=== PATIENT | female | born 1940 | race Caucasian/White ===

== ENCOUNTER → 2016-06-12 | Outpatient (CLI) | payer MEDICARE, OTHER ==
[~2016-06-12] MED LIST: ALBUAER3 IN; CELE200C PO; DOCU-94 PO; LEVO50TA7 PO; OMEP20CA5 PO; PROP60CA8 PO; RIV20T PO; SIMV-13 OR; TEMA30CA PO
[2016-06-12 14:10] LABS: Albumin 3.2 g/dL (3.4-5.0); BUN/Creatinine Ratio 43.6; Bilirubin, Direct 0.2 mg/dL (0-0.2); Bilirubin, Total 0.5 mg/dL (0.2-1.0); Calcium 8.8 mg/dL (8.5-10.1); Total Protein 6.4 g/dL (6.4-8.2)
[2016-06-12 18:21] LABS: Basophils # (auto) 0 uL; Basophils % (auto) 0.2 % (0.0-2.0); Eosinophils # (auto) 0.2 uL; Eosinophils % (auto) 1.8 % (0.0-7.0); Hematocrit 45.1 % (36.0-46.0); Hemoglobin 14.7 g/dL (12.2-16.2); Lymphocytes # (auto) 2.4 uL; Lymphocytes % (auto) 25.2 % (10.0-50.0); Mean Corpuscular Hemoglobin 29.7 pg (28.0-32.0); Mean Corpuscular Hgb Conc. 32.6 g/dL (32.0-36.0); Mean Corpuscular Volume 91.1 fL (80.0-100.0); Monocytes # (auto) 0.7 uL; Monocytes % (auto) 7.3 % (0.0-12.0); Neutrophils # (auto) 6.3 uL; Neutrophils % (auto) 65.5 % (37.0-80.0); Platelet Count (auto) 211 10^3/uL (140-450); Red Cell Distribution Width 14.8 % (11.6-16.0); White Blood Cell 9.7 10^3/uL (4.4-10.8)
== END | disposition home or self-care (01) ==
LOC: Rad HDHVI 08:17
PROVIDERS: ATTEND Internal Medicine Cardiovascular Disease
DX: I10 Essential (primary) hypertension (principal); E78.00 Pure hypercholesterolemia, unspecified; K74.1 Hepatic sclerosis; E11.9 Type 2 diabetes mellitus without complications; E03.9 Hypothyroidism, unspecified; D64.9 Anemia, unspecified; E55.9 Vitamin D deficiency, unspecified
CPT/HCPCS: 36415; 80048; 80061; 80076; 82306; 83036; 84443; 85025; 93971

== ENCOUNTER → 2016-07-11 | Outpatient (CLI) | payer MEDICARE, OTHER, MEDICAID | END | disposition home or self-care (01) | LOC: Rad HDHVI 10:59 | PROVIDERS: ATTEND Internal Medicine Cardiovascular Disease | DX: I10 Essential (primary) hypertension (principal); R78.5 Finding of other psychotropic drug in blood; R07.89 Other chest pain; R06.02 Shortness of breath | CPT/HCPCS: 93306 ==

== ENCOUNTER → 2016-09-17 | Outpatient (CLI) | payer MEDICARE, OTHER, MEDICAID ==
[~2016-09-17] MED LIST changes: -OMEP20CA5 PO; +OMEP20CA74 PO
[2016-09-17 13:46] LABS: Basophils # (auto) 0 uL; Basophils % (auto) 0.5 % (0.0-2.0); CONDITION Y; Eosinophils # (auto) 0.1 uL; Eosinophils % (auto) 1.5 % (0.0-7.0); Hemoglobin 14.8 g/dL (12.2-16.2); Lymphocytes # (auto) 3.1 uL; Lymphocytes % (auto) 44.3 % (10.0-50.0); Mean Corpuscular Hemoglobin 29.7 pg (28.0-32.0); Mean Corpuscular Hgb Conc. 32.9 g/dL (32.0-36.0); Mean Corpuscular Volume 90.3 fL (80.0-100.0); Mean Platelet Volume 9.8 fL (7.4-10.4); Monocytes # (auto) 0.7 uL; Monocytes % (auto) 9.7 % (0.0-12.0); Neutrophils # (auto) 3.1 uL; Platelet Count (auto) 232 10^3/uL (140-450)
[2016-09-17 14:05] LABS: Albumin 3.2 g/dL (3.4-5.0); BUN/Creatinine Ratio 49.1; Bilirubin, Total 0.3 mg/dL (0.2-1.0); Calcium 8.9 mg/dL (8.5-10.1); Potassium 4.3 mmol/L (3.5-5.1); Total Protein 6.5 g/dL (6.4-8.2)
== END | disposition home or self-care (01) ==
LOC: LAB 13:27
DX: I10 Essential (primary) hypertension (principal); M25.50 Pain in unspecified joint; M06.9 Rheumatoid arthritis, unspecified; D64.9 Anemia, unspecified; Z79.899 Other long term (current) drug therapy
CPT/HCPCS: 36415; 80053; 85025; 85652; 86141

== ENCOUNTER → 2016-12-18 | Outpatient (CLI) | payer MEDICARE ==
[2016-12-18 13:49] LABS: Basophils # (auto) 0 uL; Basophils % (auto) 0.6 % (0.0-2.0); Eosinophils # (auto) 0.2 uL; Eosinophils % (auto) 2.3 % (0.0-7.0); Hemoglobin 14.8 g/dL (12.2-16.2); Lymphocytes # (auto) 3.2 uL; Lymphocytes % (auto) 42.8 % (10.0-50.0); Mean Corpuscular Hemoglobin 29.5 pg (28.0-32.0); Mean Corpuscular Hgb Conc. 32.9 g/dL (32.0-36.0); Mean Corpuscular Volume 89.7 fL (80.0-100.0); Mean Platelet Volume 9.4 fL (6.9-10.8); Monocytes # (auto) 0.6 uL; Monocytes % (auto) 7.4 % (0.0-12.0); Neutrophils # (auto) 3.5 uL; Neutrophils % (auto) 46.9 % (37.0-80.0); Nucleated Red Blood Cells % 0.1 %; Platelet Count (auto) 198 10^3/uL (140-450); Red Cell Distribution Width 13.5 % (11.8-14.3); White Blood Cell 7.5 10^3/uL (4.4-10.8)
[2016-12-18 14:07] LABS: Albumin 3.3 g/dL (3.4-5.0); BUN/Creatinine Ratio 45.2; Bilirubin, Total 0.4 mg/dL (0.2-1.0); Calcium 8.8 mg/dL (8.5-10.1); Potassium 4.2 mmol/L (3.5-5.1); Total Protein 6.5 g/dL (6.4-8.2)
== END | disposition home or self-care (01) ==
LOC: LAB 13:29
DX: I10 Essential (primary) hypertension (principal); I70.0 Atherosclerosis of aorta; D64.9 Anemia, unspecified; M25.50 Pain in unspecified joint; M06.9 Rheumatoid arthritis, unspecified; Z79.899 Other long term (current) drug therapy
CPT/HCPCS: 36415; 80053; 85025; 85652; 86141

== ENCOUNTER → 2016-12-31 | Outpatient (CLI) | payer MEDICARE | END | disposition home or self-care (01) | LOC: Rad HDHVI 14:02 | PROVIDERS: ATTEND Internal Medicine Cardiovascular Disease | DX: I36.1 Nonrheumatic tricuspid (valve) insufficiency (principal); I82.409 Acute embolism and thrombosis of unspecified deep veins of unspecified lower extremity; E70.0 Classical phenylketonuria | CPT/HCPCS: 93306 ==

== ENCOUNTER → 2018-05-20 | Outpatient (CLI) | payer MEDICARE ==
[~2018-05-20] MED LIST changes: +FUROSEMIDE 40 MG/4 ML VIAL IV ONE; +FUROSEMIDE 40 MG/4 ML VIAL ONE; +POTASSIUM CHL 10 Meq TABLET PO ONE; +POTASSIUM CHL 20 Meq TABLET PO ONE; +PROP60CA34 PO; -PROP60CA8 PO
--- NOTE | 2018-05-20 14:34 | NUR ---
CHF PT ARRIVED AT THE [facility]F [facility]IN[facility] FROM THE DR OFFICE. ORDERS RECIVED AND NOTED. VITALS OBTAINED PT IN 0 DISTRESS.
--- NOTE | 2018-05-20 14:45 | NUR ---
IV insertion IV access obtained, via clean sterile technique by inserting 22 BUTTERFLY gauge catheter at after attempt(s). IV secured properly. No trauma to site. Patient tolerated procedure well.
[2018-05-20 14:53] VITALS: BP 114/52
--- NOTE | 2018-05-20 15:00 | NUR ---
Discharge Instructions See e-MAR for any mediations given with this visit. Patient education given on disease process. Patient verbalized understanding. Previous labs reviewed. Patient discharged in stable condition with after care instructions and follow up appointment. MEDICATIONS LASIX 40 MG IVP X 1 KDUR 20 MEQ X 1
--- NOTE | 2018-05-20 15:00 | NUR ---
IV removal IV DC'd with sterile technique, catheter fully intact. Pressure dressing applied to site. Patient tolerated procedure well. Discharged with aftercare instructions per MD. NOTE:
== END | disposition home or self-care (01) ==
LOC: CHF HDHVI 14:34
PROVIDERS: ATTEND Internal Medicine Cardiovascular Disease
DX: I11.0 Hypertensive heart disease with heart failure (principal); I50.9 Heart failure, unspecified; E03.9 Hypothyroidism, unspecified; E78.00 Pure hypercholesterolemia, unspecified; E11.9 Type 2 diabetes mellitus without complications; G89.29 Other chronic pain; Z86.718 Personal history of other venous thrombosis and embolism; Z79.899 Other long term (current) drug therapy
CPT/HCPCS: 96374; G0463; J1940

== ENCOUNTER → 2018-05-28 | Outpatient (CLI) | payer MEDICARE ==
[~2018-05-28] MED LIST changes: -FUROSEMIDE 40 MG/4 ML VIAL IV ONE; -FUROSEMIDE 40 MG/4 ML VIAL ONE; -POTASSIUM CHL 10 Meq TABLET PO ONE; -POTASSIUM CHL 20 Meq TABLET PO ONE
== END | disposition home or self-care (01) ==
LOC: Rad HDHVI 14:00
PROVIDERS: ATTEND Internal Medicine Cardiovascular Disease
DX: I51.7 Cardiomegaly (principal); I47.1 Supraventricular tachycardia; R09.1 Pleurisy
CPT/HCPCS: 93306

== ENCOUNTER → 2018-07-13 | Outpatient (CLI) | payer MEDICARE ==
[~2018-07-13] MED LIST changes: +ATOR40TA52 PO; +CHOL20007 PO; +FURO20TA PO; +OME20T PO; +POTA-167 PO; +WARF3TAB20 PO
[2018-07-13 09:15] VITALS: BP 116/56
[2018-07-13 09:45] VITALS: BP 119/65
--- NOTE | 2018-07-13 09:45 | NUR ---
PRE-OP FOR RIGHT AND LEFT HEART CATH FOR 07/16/18 Pre-Op Discharge Summary: See e-MAR for any medications given for this visit. Pre-op orders received and carried out per MD of EKG, LABS and chest xrays. Patient given a copy of EKG with instructions to go to [facility] out patient for further follow up care.
[2018-07-13 12:22] LABS: Basophils # (auto) 0 uL; Basophils % (auto) 0.5 % (0.0-2.0); Eosinophils # (auto) 0.2 uL; Eosinophils % (auto) 2.6 % (0.0-7.0); Hematocrit 46.9 % (36.0-46.0); Hemoglobin 15.3 g/dL (12.2-16.2); Lymphocytes # (auto) 2.3 uL; Lymphocytes % (auto) 38.6 % (10.0-50.0); Mean Corpuscular Hemoglobin 29.9 pg (28.0-32.0); Mean Corpuscular Hgb Conc. 32.7 g/dL (32.0-36.0); Mean Corpuscular Volume 91.6 fL (80.0-100.0); Monocytes # (auto) 0.5 uL; Monocytes % (auto) 9.1 % (0.0-12.0); Neutrophils # (auto) 2.9 uL; Neutrophils % (auto) 49.2 % (37.0-80.0); Nucleated Red Blood Cells % 0.5 %; Platelet Count (auto) 182 10^3/uL (140-450); Red Blood Cells 5.12 10^6/uL (4.0-5.20); Red Cell Distribution Width 13.2 % (11.8-14.3); White Blood Cell 5.8 10^3/uL (4.4-10.8)
[2018-07-13 12:28] LABS: INR 3.38 (0.9-1.15); Partial Thromboplastin Time 41.3 sec (23.64-32.05); Prothrombin Time 34.4 sec (9.06-12.60)
[2018-07-13 13:08] LABS: BUN/Creatinine Ratio 42.9; Calcium 8.9 mg/dL (8.5-10.1); Potassium 4.1 mmol/L (3.5-5.1)
== END | disposition home or self-care (01) ==
LOC: CHF HDHVI 09:05
PROVIDERS: ATTEND Internal Medicine Cardiovascular Disease
DX: Z01.812 Encounter for preprocedural laboratory examination (principal); D64.9 Anemia, unspecified; R79.1 Abnormal coagulation profile; I10 Essential (primary) hypertension
CPT/HCPCS: 36415; 80048; 85025; 85610; 85730; 93005; G0463

== ENCOUNTER 2018-07-16 07:28 | Day surgery (SDC) | payer MEDICARE ==
[~2018-07-16] VITALS: Ht 157.5 cm; Wt 68.0 kg
[~2018-07-16 07:28] MED LIST changes: -ALBUAER3 IN; -DOCU-94 PO; -RIV20T PO; -SIMV-13 OR; -TEMA30CA PO
[2018-07-16 08:24] LABS: INR 1.44 (0.9-1.15)
[2018-07-16] MEDS ORDERED: ANGIOMAX 250 MG VIAL IV ONE (08:46)
[2018-07-16] MEDS ORDERED: methylPREDNISolone SOD SUCC 125 MG/2 ML VL ONE (08:46)
[2018-07-16] MEDS ORDERED: fentaNYL CITRATE 100 MCG/2 ML VL ONE (08:46)
[2018-07-16] MEDS ORDERED: diphenhdrAMINE HCL 50 MG/1 ML VL ONE (08:46)
[2018-07-16] MEDS ORDERED: LIDOCAINE 2%HCL (LOCAL ANESTH.) INJ 20ML MDV ONE (08:47)
[2018-07-16] MEDS ORDERED: ONDANSETRON HCL 4 MG/2 ML VIAL ONE (08:47)
[2018-07-16] MEDS ORDERED: SODIUM CHL 0.9% 0 ML ONE (08:47)
[2018-07-16] MEDS ORDERED: MIDAZOLAM HCL 1MG/1ML-2 ML VIAL ONE (08:47)
[2018-07-16] MEDS ORDERED: IOHEXOL 350 MG/ML 100ML IJ ONE ×2 (08:47→08:57)
[2018-07-16] MEDS ORDERED: FAMOTIDINE (10MG/ML) 2ML VL IV ONE (08:49)
[2018-07-16] MEDS ORDERED: ACETAMINOPHEN 500 MG TAB PO PRN (10:45)
[2018-07-16] MEDS ORDERED: ONDANSETRON HCL 4 MG/2 ML VIAL IV PRN (10:45)
== END 2018-07-16 12:34 | disposition home or self-care (01) ==
LOC: CATH 07:28
PROVIDERS: ATTEND Internal Medicine Cardiovascular Disease
DX: I25.10 Atherosclerotic heart disease of native coronary artery without angina pectoris (principal); I49.8 Other specified cardiac arrhythmias; I27.20 Pulmonary hypertension, unspecified; I82.411 Acute embolism and thrombosis of right femoral vein; E66.8 Other obesity; Z79.01 Long term (current) use of anticoagulants; Z86.718 Personal history of other venous thrombosis and embolism; Z87.440 Personal history of urinary (tract) infections; Z86.711 Personal history of pulmonary embolism; Z90.710 Acquired absence of both cervix and uterus; Z82.49 Family history of ischemic heart disease and other diseases of the circulatory system; Z82.3 Family history of stroke; Z98.890 Other specified postprocedural states; Z79.899 Other long term (current) drug therapy; Z88.5 Allergy status to narcotic agent; Z88.8 Allergy status to other drugs, medicaments and biological substances; Z88.0 Allergy status to penicillin; Z88.1 Allergy status to other antibiotic agents; Z91.041 Radiographic dye allergy status
CPT/HCPCS: 36415; 85610; 93460; C1760; C1894; J1200; J1644; J2250; J2405; J2930; J3010; J3490; J7030; Q9967; 99152; 99153

== ENCOUNTER → 2019-09-23 | Outpatient (CLI) | payer MEDICARE, OTHER, MEDICAID ==
[~2019-09-23] MED LIST changes: +FURO1TAB33 PO; -FURO20TA PO
== END | disposition home or self-care (01) ==
LOC: Rad HDHVI 10:04
PROVIDERS: ATTEND Internal Medicine Cardiovascular Disease
DX: I26.99 Other pulmonary embolism without acute cor pulmonale (principal); E78.5 Hyperlipidemia, unspecified; R06.02 Shortness of breath
CPT/HCPCS: 93306

== ENCOUNTER 2021-04-22 18:25 | Emergency (ER) | payer MEDICARE, MEDICAID ==
[~2021-04-22] VITALS: Ht 157.5 cm; Wt 72.6 kg
[2021-04-22] MEDS ORDERED: diazePAM 5 MG TAB PO ONE ×2 (19:30→21:15)
[2021-04-22] MEDS ORDERED: SODIUM CHLORIDE 0.9% 1,000 ML IV ONE (19:30)
[2021-04-22] MEDS ORDERED: KETOROLAC TROMETH 30 MG/ML 1ML VIAL IV ONE (19:30)
[2021-04-22 20:17] LABS: Basophils # (auto) 0.2 10 ^3/uL (0-0.2); Basophils % (auto) 2.1 % (0.0-2.0); Eosinophils # (auto) 0.1 10 ^3/uL (0-0.8); Eosinophils % (auto) 1.2 % (0.0-7.0); Hematocrit 44.7 % (36.0-46.0); Hemoglobin 14.8 g/dL (12.2-16.2); Lymphocytes # (auto) 2.2 10 ^3/uL (0.4-5.4); Lymphocytes % (auto) 25.6 % (10.0-50.0); Mean Corpuscular Hemoglobin 29.7 pg (28.0-32.0); Mean Corpuscular Hgb Conc. 33.1 g/dL (32.0-36.0); Mean Corpuscular Volume 89.7 fL (80.0-100.0); Monocytes # (auto) 0.6 10 ^3/uL (0-1.3); Monocytes % (auto) 6.8 % (0.0-12.0); Neutrophils # (auto) 5.5 10 ^3/uL (1.6-8.6); Neutrophils % (auto) 64.3 % (37.0-80.0); Nucleated Red Blood Cells % 0.2 %; Red Blood Cells 4.99 10^6/uL (4.0-5.20); Red Cell Distribution Width 14.5 % (11.8-14.3); White Blood Cell 8.6 10^3/uL (4.4-10.8)
[2021-04-22 20:25] LABS: Urine Bacteria NONE SEEN /hpf (None Seen); Urine Blood Negative /uL (Negative); Urine Specific Gravity 1.017 (1.001-1.035); Urine WBC 1 /hpf (0 - 5)
[2021-04-22 20:34] LABS: Albumin 3.2 g/dL (3.4-5.0); BUN/Creatinine Ratio 40.3; Calcium 8.7 mg/dL (8.5-10.1); Potassium 4.1 mmol/L (3.5-5.1)
[2021-04-22 20:39] LABS: Bilirubin, Total 0.3 mg/dL (0.2-1.0); Total Protein 6.4 g/dL (6.4-8.2)
[2021-04-22] MEDS ORDERED: MORPHINE SULFATE INJECTION 2 MG/ML SYRG IV ONE (21:15)
[2021-04-22] MEDS ORDERED: diphenhdrAMINE HCL 50 MG/1 ML VL IV ONE (22:45)
[2021-04-22] MEDS ORDERED: ACETYLCYSTEINE ORAL for CIN 20%(200MG/ML) 4ML PO ONE (22:45)
[2021-04-22] MEDS ORDERED: IOHEXOL 350 MG/ML 100ML IJ ONE (23:29)
[2021-04-23] MEDS ORDERED: MORPHINE SULFATE INJECTION 2 MG/ML SYRG IV ONE (02:30)
[2021-04-23 04:24] VITALS: BP 125/66
[2021-04-23] MEDS ORDERED: DIAZ5TAB PO (05:34)
[2021-04-23] MEDS ORDERED: SENN8.6T26 PO (05:34)
[2021-04-23] MEDS ORDERED: HYDR-4902 PO (05:34)
== END 2021-04-23 05:43 | disposition home or self-care (01) ==
LOC: EDBD 18:25 → ER 18:28
DX: S39.012A Strain of muscle, fascia and tendon of lower back, initial encounter (principal); K44.9 Diaphragmatic hernia without obstruction or gangrene; I10 Essential (primary) hypertension; I48.91 Unspecified atrial fibrillation; J45.909 Unspecified asthma, uncomplicated; E03.9 Hypothyroidism, unspecified; Z90.89 Acquired absence of other organs; Z79.01 Long term (current) use of anticoagulants; Z79.899 Other long term (current) drug therapy; Z88.0 Allergy status to penicillin; Z88.1 Allergy status to other antibiotic agents; Z88.5 Allergy status to narcotic agent; Z88.8 Allergy status to other drugs, medicaments and biological substances; Z20.822 Contact with and (suspected) exposure to COVID-19; X58.XXXA Exposure to other specified factors, initial encounter; Y93.89 Activity, other specified; Y92.89 Other specified places as the place of occurrence of the external cause; Y99.8 Other external cause status
CPT/HCPCS: 36415; 71045; 71260; 74177; 80053; 81001; 84484; 85025; 87426; 93005; 96361; 96374; 96375; 96376; 99285; J1200; J1885; J2270; J7030; Q9967

== ENCOUNTER → 2022-02-11 | Outpatient (CLI) | payer MEDICARE ==
[~2022-02-11] MED LIST changes: +DIAZ5TAB PO; +HYDR-4902 PO; +SENN8.6T26 PO
== END | disposition home or self-care (01) ==
LOC: Rad HDHVI 15:10
PROVIDERS: ATTEND Internal Medicine Cardiovascular Disease
DX: I11.9 Hypertensive heart disease without heart failure (principal)
CPT/HCPCS: 93306

== ENCOUNTER → 2022-06-17 | Outpatient (CLI) | payer MEDICARE | END | disposition home or self-care (01) | LOC: Rad HDHVI 13:21 | PROVIDERS: ATTEND Internal Medicine Cardiovascular Disease | DX: I82.409 Acute embolism and thrombosis of unspecified deep veins of unspecified lower extremity (principal) | CPT/HCPCS: 93926 ==

== ENCOUNTER 2024-07-23 19:26 | Inpatient (IN) | payer MEDICARE, MEDICAID ==
[~2024-07-23] VITALS: Ht 157.5 cm; Wt 107.0 kg
[~2024-07-23 19:26] MED LIST changes: +DIAZ-681 PO; -DIAZ5TAB PO; -POTA-167 PO; +POTA-211 PO
--- NOTE | 2024-07-23 19:40 | ED.PDOC ---
GI ASSESSMENT HPI Comments HPI: 84-year-old femal BIBA with prior medical history of hiatal hernia, EMS report that the patient is having epigastric pain that when she tries to catch a full breath it hurt her. EMS report that the vitals are good it just wanted to get checked out. Denies chills, fever, V/D, CP. No other associated symptoms, modifiers, Denies recent injuries or sick contacts present at this time. Vitals Temperature: Respiratory rate: SpO2: Heart rate: Blood pressure: Past Medical History: Arthritis, hiatal hernia, high lipids, asthma, CHF on water pills , AFib, DVT on Coumadin, hernia, thyroid, hypertension Past Surgical History: Thyroidectomy, breaths surgery, hysterectomy, hemorrhoidectomy Social History: HPI: Poor Historian. REVIEW OF SYSTEMS: CONSTITUTIONAL: Denies acute: fever, diaphoresis, chills, HEAD: Denies acute: headache, photophobia Eyes: Denies acute: Double vision, vision loss, eye pain, eye discharge. EARS: Denies acute: tinnitus, hearing loss, ear discharge, ear pain, THROAT: Denies acute: sore throat, swelling, difficulty swallowing , pain with swallowing, change in voice. NECK: Denies acute: neck pain, neck swelling, stiff neck. HEART: Denies acute : chest pain, palpitations, LUNGS: Denies acute: SOB, wheezing, cough, hemoptysis ABDOMEN: Denies acute: Vomiting, diarrhea, melena , hematemesis, hematochezia SKIN: Denies acute: rash, redness, lesions, itchiness. EXTREMITIES: Denies acute: calf pain, numbness, tingling, weakness, denies pain in extremity. Denies acute: Low back pain. Neuro: Denies acute: focal neurological deficit, motor or sensory focal neurological deficit, tremors, seizure like activity, confusion, dizziness, change in mental status, loss of bowel or bladder function, cauda equina like symptoms. : Denies acute: dysuria, hematuria, flank pain, increase in urinary frequency. PSYCH: Denies acute: hallucination, suicidal ideation, homicidal ideation. FEMALE: Denies acute: abnormal vaginal bleeding, foul odor, unusual discharge. PHYSICAL EXAM: General: ---- [id number]-[id number]----acute distress, awake and alert. Head: normocephalic, atraumatic. Neck: supple, trachea is midline, no swelling. Throat: Normal phonation. Eyes:, no erythema, no purulent discharge, no proptosis, no icterus. Heart: regular rate, regular rhythm, no significant murmur appreciated. Lungs: no apparent respiratory distress, Able to speak in full sentences. No wheezing, no rhonchi, no crackles. No stridors Clear to auscultation bilaterally. Abdomen: Epigastric tender to palpation, non distended, soft, no guarding, no rebound, + bowel sounds. Neuro: Awake, Alert, oriented to name, self, situation, follows commands GCS=15. Speech is normal. Skin: no petechia, no purpura, no cyanosis, non-pale, not jaundice. Lower extremities: --3/4 b/l - Pitting edema no deformity, no focal swelling, no calf TTP. Makes eye contact. moves all four extremities. Face: no apparent facial droop. ED COURSE: Time Seen by MD: 19:30 Primary Care Provider: ELLI Reviewed Notes: Nurses Notes, Medications, Allergies Allergies: Coded Allergies: Levofloxacin (Verified Allergy, Mild, ITCHING TO SITE OF IV INSERTION WITH REDNESS, 10/10/13) Codeine (Verified Allergy, Unknown, 07/13/18) Hydromorphone (Unverified Allergy, Unknown, 07/13/18) Iodine (Verified Allergy, Unknown, 07/13/18) FROM IODINE CONTRAST Penicillins (Verified Allergy, Unknown, 07/13/18) Propoxyphene (Verified Allergy, Unknown, 09/05/13) Home Meds Active Scripts Senna (Senna Laxative) 8.6 Mg Tab, 8.6 MG PO DAILY, #5 TAB Prov:CARA DURAN MD 04/23/21 Hydrocodone-Acetaminophen (Hydrocodone Bitartrate/AC 5-325 mg) 1 Tab Tab, 1 TAB PO Q8HPRN PRN, #15 TAB Prov:CARA DURAN MD 04/23/21 Diazepam (Valium) 5 Mg Tab, 10 MG PO BID, #10 TAB Prov:CARA DURAN MD 04/23/21 Reported Medications Cholecalciferol (VITAMIN D3) 2,000 Unit Tab, 1 TAB PO DAILY, #30 TAB 5 Refills 07/13/18 Potassium Chloride (Klor-Con 10) 10 Meq Tab, 10 MEQ PO DAILY, TAB 07/13/18 Furosemide (Lasix) 20 Mg Tb, 1 TAB PO DAILY, #90 TAB 1 Refill 07/13/18 Warfarin Sodium (Coumadin) 3 Mg Tab, 1 TAB PO DAILY, #30 TAB 5 Refills 07/13/18 Atorvastatin Calcium (ATORVASTATIN CALCIUM) 40 Mg Tab, 1 TAB PO QPM, #90 TAB 3 Refills 07/13/18 Omeprazole (Omeprazole) 20 Mg Cap, 40 MG PO QAM, CAP 07/13/18 Propranolol Hcl (Inderal La) 60 Mg Cap, 40 MG PO BID, CAP 10/09/13 Celecoxib (Celebrex) 200 Mg Cap, 200 MG PO DAILY 11/28/12 Levothyroxine Sodium (Levothyroxine Sodium) 50 Mcg Tab, 50 MCG PO QAM 11/28/12 Omeprazole (PRILOSEC) 20 Mg Cap, 20 MG PO QPM 11/28/12 Information Source: Patient, Emergency Med Personnel Mode of Arrival: EMS Past Medical History PAST MEDICAL HISTORY: AFIB, Arthritis, Asthma, CHF, High Lipids, HTN, Thyroid Past Medical History (Other): Hiatal hernia, DVT on right leg Surgical History: Hysterectomy, Thyroidectomy Surgical History (Other): Breasts surgery, hemorrhoidectomy FUR POLISHER History: Denies all FUR POLISHER Hx Family History Family History: Reviewed,noncontributory to illness, Unknown Social History Smoker: Non-Smoker Alcohol: Denies ETOH Use Drugs: Denies Drug Use Lives In: Home Was a procedure done? Was a procedure done?: No GI differential Dx Differential Diagnosis: Other (DDX include Diverticulitis, colitis, gastroenteritis, acute abdomen, SBO, enteritis, constipation, volvulus, appendicitis, Gallbladder disease, choledocolithiasis, ascending cholangitis, pancreatitis, intraAbdominal mass/neoplasm, hepatitis, UTI, pylonephritis, kidney stone, aneurysm, dissection, Inflammatory bowel disease, gastroparesis, ischemic bowel, ) X-Ray, Labs, Meds, VS Vital Signs Date Time Temp Pulse Resp B/P (MAP) Pulse Ox O2 Delivery O2 Flow Rate FiO2 07/23/24 23:00 77 16 130/67 (88) 93 07/23/24 22:21 173/76 07/23/24 22:21 176/79 07/23/24 22:00 70 16 179/79 (112) 96 07/23/24 20:11 74 16 96 Room Air* 0 21 07/23/24 20:00 98.2 74 16 153/76 (101) 96 98.2 07/23/24 19:28 79 07/23/24 19:26 98.7 85 22 164/84 (110) 97 98.7 Lab Test 07/23/24 20:40 07/23/24 19:59 07/23/24 19:55 Range/Units Troponin I High Sensitivity < 3 L < 3 L </=34 ng/L POC Glucose 103 70-106 mg/dl White Blood Count 9.6 4.4-10.8 10^3/uL Red Blood Count 5.05 4.0-5.20 10^6/uL Hemoglobin 15.1 12.2-16.2 g/dL Hematocrit 46.4 H 36.0-46.0 % Mean Corpuscular Volume 91.9 80.0-100.0 fL Mean Corpuscular Hemoglobin 29.9 28.0-32.0 pg Mean Corpuscular Hemoglobin Concent 32.5 32.0-36.0 g/dL Red Cell Distribution Width 13.3 11.8-14.3 % Platelet Count 210 140-450 10^3/uL Mean Platelet Volume 8.4 6.9-10.8 fL Neutrophils (%) (Auto) 52.6 37.0-80.0 % Lymphocytes (%) (Auto) 36.7 10.0-50.0 % Monocytes (%) (Auto) 9.2 0.0-12.0 % Eosinophils (%) (Auto) 1.2 0.0-7.0 % Basophils (%) (Auto) 0.3 0.0-2.0 % Neutrophils # (Auto) 5.0 1.6-8.6 10 ^3/uL Lymphocytes # (Auto) 3.5 0.4-5.4 10 ^3/uL Monocytes # (Auto) 0.9 0-1.3 10 ^3/uL Eosinophils # (Auto) 0.1 0-0.8 10 ^3/uL Basophils # (Auto) 0 0-0.2 10 ^3/uL Nucleated Red Blood Cells 0.1 % Sodium Level 140 136-145 mmol/L Potassium Level 4.3 3.5-5.1 mmol/L Chloride Level 107 98-107 mmol/L Carbon Dioxide Level 23 20-31 mmol/L Anion Gap 10 5-15 Blood Urea Nitrogen 19 9-23 mg/dL Creatinine 0.59 0.550-1.02 mg/dL Glomerular Filtration Rate Calc 89 >90 mL/min BUN/Creatinine Ratio 32.2 H 10.0-20.0 Serum Glucose 97 74-106 mg/dL Lactic Acid Level 1.1 0.4-2.0 mmol/L Calcium Level 9.4 8.7-10.4 mg/dL Total Bilirubin 0.4 0.2-1.0 mg/dL Aspartate Amino Transferase (AST) 16 13-40 U/L Alanine Aminotransferase (ALT) 12 7-40 U/L Alkaline Phosphatase 93 46-116 U/L B-Type Natriuretic Peptide 35.92 0-100 pg/mL Total Protein 5.9 5.7-8.2 g/dL Albumin 4.2 3.2-4.8 g/dL Lipase 50 12-53 U/L Current Medications Medications (Trade) Dose Ordered Sig/Fernando Route Start Time Stop Time Status Last Admin Sucralfate (Carafate Tab) 1 gm ONCE ONCE PO 07/23/24 20:00 07/23/24 20:01 DC 07/23/24 20:26 Pantoprazole Sodium (Protonix Tablet) 40 mg ONCE ONCE PO 07/23/24 20:00 07/23/24 20:01 DC 07/23/24 20:26 Lidocaine HCl (Xylocaine 2% Viscous) 10 ml ONCE ONCE PO 07/23/24 20:00 07/23/24 20:01 DC 07/23/24 20:26 Furosemide (Lasix Injection) 40 mg ONCE ONCE IV 07/23/24 21:15 07/23/24 21:56 DC 07/23/24 22:21 Fentanyl Citrate 100 mcg ONCE ONCE IV 07/23/24 21:15 07/23/24 21:56 DC 07/23/24 22:[address] [address] Ph: [phone] DIAGNOSTIC IMAGING Diagnostic Imaging Report : [id number] Signed PATIENT: JOHN BALLARD ACCT: [id number] UNIT: [id number] : 1940 LOC: ER ROOM / BED: / AGE / SEX: 84 / F ADM STATUS: REG ER SERVICE 44 ORDERING PHYSICIAN: MIRLANDE GONZALEZ DO PROCEDURE(s): CXRP - CHEST PORTABLE REASON: epig pain ORDER NUMBER(s): [id number], ACCESSION NUMBER(s): [id number] INDICATION: epig pain TECHNIQUE: Frontal view of the chest. COMPARISON: CHEST PORTABLE on DOS: 04/22/21 FINDINGS: LUCENCY BENEATH RIGHT MIRIAN DIAPHRAGM. CT RECOMMENDED. FREE AIR NOT EXCLUDED . The heart and mediastinal contours are grossly unremarkable. There is no evidence of pleural disease. The lungs are clear. The bony structures of the chest are intact without fracture. IMPRESSION: 1. LUCENCY BENEATH RIGHT MIRIAN DIAPHRAGM. CT RECOMMENDED. FREE AIR NOT EXCLUDED ATED BY: JG AVITIA MD DICTATED DATE/TIME: 07/23/242043 SIGNED BY: JG AVITIA MD SIGNED DATE/TIME: 07/23/242043 CC: [place] [id number] Ph: [phone] DIAGNOSTIC IMAGING Diagnostic Imaging Report : [id number] Signed PATIENT: JOHN BALLARD ACCT: [id number] UNIT: [id number] : 1940 LOC: ER ROOM / BED: / AGE / SEX: 84 / F ADM STATUS: REG ER SERVICE 44 ORDERING PHYSICIAN: MIRLANDE GONZALEZ DO PROCEDURE(s): ABPL - CT AB PEL WO CON-NO ORAL OR IV REASON: epig pain n/ ORDER NUMBER(s): [id number], ACCESSION NUMBER(s): [id number] Exam: CT CT AB PEL WO CON-NO ORAL OR IV History: epig pain n/ Comparison Study: ECIDC on DOS: 02/11/22 TECHNIQUE: Multidetector CT of the abdomen was performed from lung bases to pubic symphysis. Imaging was performed without IV contrast. Axial, coronal and sagittal multiplanar reformats were obtained from the axial data set by the technologist. Radiation Dose Information: CT Dose: CTDI volume is 23.79 mGy. Dose-length product is 1356.94 mGy*cm FINDINGS: Evaluation of solid organs is limited due to lack of intravenous contrast use. Findings: Lung Bases: No acute or significant lung base finding. Normal heart size. No pleural or pericardial effusion. Liver: The liver is normal in size. No focal lesions. Gallbladder and Biliary Tree: Small Calcified gallstones. Spleen: Unremarkable Pancreas: The pancreas is grossly normal in appearance. Adrenal Glands: Unremarkable Kidneys: Kidneys are grossly normal without calculi or hydronephrosis. Bladder: Grossly unremarkable for degree of distention. Bowel: Very large hiatal hernia measuring 23 cm in transverse dimension and 13 cm cranial caudal dimension. It contains mesenteric fat stomach and bowel creating atelectasis in both the right and left lower lung eagle.. Small bowel and colon are normal in caliber and distribution. The appendix is not visualized; however, no secondary findings of acute appendicitis identified. Ascites: Absent Lymphadenopathy: No mesenteric, retroperitoneal or periportal lymphadenopathy. Abdominal Wall and Mesentery: Unremarkable. Vasculature: The visualized abdominal aorta is normal in size and caliber. Filt er in the inferior vena cava. Evaluation of abdominal and pelvic vessels is limited due to lack of intravenous contrast. Pelvic Organs: Unremarkable Musculoskeletal: No aggressive focal bony lesions, acute fractures or dislocation. 2-3 mm anterior spondylolisthesis L4-L5. Soft tissues: Unremarkable IMPRESSION: 1. Large hiatal hernia measuring 24 cm in transverse dimension and 13 cm in cranial caudal dimension. The hernia contains mesenteric fat stomach and bowel. It is compressing the lower lung eagle bilaterally 2. Small gallstones. 3. Filter noted in the inferior vena cava. This is a TrapEase filter and is inferior to the renal veins. 4. 2-3 mm anterior spondylolisthesis L4-5. Radiation optimization: All CT scans at this facility use at least one of these dose optimization techniques: automated exposure control mA and/or kV adjustment per patient size (includes targeted exams where dose is matched to clinical indication) or iterative reconstruction. ATED BY: DUY HAYWOOD Jr. DO DICTATED DATE/TIME: 07/23/242127 SIGNED BY: DUY HAYWOOD Jr., SIGNED DATE/TIME: 07/23/242127 CC: Time of 1ST Reevaluation: 20:00 Reevaluation 1ST: Unchanged Time of 2ND Reevaluation: 00:00 Reevaluation 2ND: Improved Patient Education/Counseling: Diagnosis, Treatment, Prognosis Family Education/Counseling: No Family Present Comments Patient presented with the above HPI.---Epigastric pain---workup was initiated. patient was found with the above mentioned diagnosis. the following medications were ordered: please refer to order lists of meds and tests obtained by myself Dr. Gonzalez. Patient ED course and VS have been stabilized. Patient has been reassessed in the ED and remained in a stable condition. Pertinent incidental findings were discussed with the patient and/or family. Patient/family voices understanding and is agreeable with plan. Patient has been observed in the ED adequate length of time to insure improvement/stability. Escalation of care considered: Consideration of escalation to observation or admission patient states she has struggled with this problem for a long time with severe hiatal hernia. She has not been able to see any specialist General surgery or Gastroenterology because she says where she resides in a facility and can not have a ride to go to see any specialists. as very for outpatient close follow up. Patient was ADMITTED to the medicine team for further evaluation and treatment of their presentation. Given p.o. trial with water and apple juice but that caused a lot of pain. All the reports of any imaging studies that were ordered by myself were reviewed by myself. Departure 1 Departure Time of Disposition: 21:57 Impression: Primary Impression: Hiatal hernia Additional Impression: Epigastric pain Disposition: ADMITTED INPATIENT Admit to: [facility] Condition: Guarded Discharged With: Self Critical Care Note Critical Care Time?: No Heart Score Heart Score: Heart Score Response (Comments) Value History Slightly Suspicious 0 EKG Normal 0 Age >65 2 Risk Factors 1 or 2 risk factors 1 Troponin Normal limit 0 Total 3 I personally scribed for MIRLANDE GONZALEZ DO ([email or web address]) on 07/23/24 at 19:40. Electronically submitted by Esau Houston ([email or web address]). I personally scribed for MIRLANDE GONZALEZ DO ([email or web address]) on 07/23/24 at 21:35. Electronically submitted by Esau Houston ([email or web address]). MIRLANDE GONZALEZ DO July 23, 2024 19:40
[2024-07-23 20:11] VITALS: PULSE 74; RESP 16; O2SAT 96
[2024-07-23 20:12] LABS: Basophils # (auto) 0 10 ^3/uL (0-0.2); Basophils % (auto) 0.3 % (0.0-2.0); Eosinophils # (auto) 0.1 10 ^3/uL (0-0.8); Eosinophils % (auto) 1.2 % (0.0-7.0); Hematocrit 46.4 % (36.0-46.0); Hemoglobin 15.1 g/dL (12.2-16.2); Lymphocytes # (auto) 3.5 10 ^3/uL (0.4-5.4); Lymphocytes % (auto) 36.7 % (10.0-50.0); Mean Corpuscular Hemoglobin 29.9 pg (28.0-32.0); Mean Corpuscular Hgb Conc. 32.5 g/dL (32.0-36.0); Mean Corpuscular Volume 91.9 fL (80.0-100.0); Monocytes # (auto) 0.9 10 ^3/uL (0-1.3); Monocytes % (auto) 9.2 % (0.0-12.0); Neutrophils % (auto) 52.6 % (37.0-80.0); Nucleated Red Blood Cells % 0.1 %; Platelet Count (auto) 210 10^3/uL (140-450); Red Blood Cells 5.05 10^6/uL (4.0-5.20); Red Cell Distribution Width 13.3 % (11.8-14.3); White Blood Cell 9.6 10^3/uL (4.4-10.8)
[2024-07-23 20:25] LABS: Alanine Aminotransferase 12 U/L (7-40); Alkaline Phosphatase 93 U/L (46-116); Anion Gap 10 (5-15); Aspartate Aminotransferase 16 U/L (13-40); BUN/Creatinine Ratio 32.2 (10.0-20.0); Blood Urea Nitrogen 19 mg/dL (9-23); Calcium 9.4 mg/dL (8.7-10.4); Carbon Dioxide 23 mmol/L (20-31); Chloride 107 mmol/L (98-107); Glucose 97 mg/dL (74-106); Lipase 50 U/L (12-53); Potassium 4.3 mmol/L (3.5-5.1); Sodium 140 mmol/L (136-145); Total Protein 5.9 g/dL (5.7-8.2)
[2024-07-23 20:26] LABS: Albumin 4.2 g/dL (3.2-4.8); Bilirubin, Total 0.4 mg/dL (0.2-1.0)
[2024-07-23] MEDS: LIDOCAINE VISCOUS 2% 15ML UD PO ONE (20:26)
[2024-07-23] MEDS: PANTOPRAZOLE 40 MG TAB PO ONE (20:26)
[2024-07-23] MEDS: SUCRALFATE 1 GM TAB PO ONE (20:26)
--- NOTE | 2024-07-23 20:42 | ECG ---
[facility] Test Date: 2024-07-23 Test Time: 19:28:22 Pat Name: JOHN BALLARD Department: ED Room: 0247 Gender: F Edi Programmer Analyst: ANDREW : 1940 Requested By: MILTON AGUILAR Order Number: [id number] Reading MD: Parag Freedman Measurements Intervals [place] Rate: 79 P: 34 NH: 54 QRS: -2 QRSD: 84 T: 31 QT: 348 QTc: 399 Interpretive Statements Sinus rhythm Short NH interval Left atrial enlargement Baseline wander in lead(s) V1,V4,V6 Electronically Signed On 07-25-2024 22:27:48 PDT by Parag Freedman Please click the below link to view image of tracing.
--- NOTE | 2024-07-23 20:46 | DVH ---
INDICATION: epig pain TECHNIQUE: Frontal view of the chest. COMPARISON: CHEST PORTABLE on DOS: 04/22/21 FINDINGS: LUCENCY BENEATH RIGHT MIRIAN DIAPHRAGM. CT RECOMMENDED. FREE AIR NOT EXCLUDED . The heart and mediasti nal contours are grossly unremarkable. There is no evidence of pleural disease. The lungs are clear. The bony structures of the chest are intact without fracture. IMPRESSION: 1. LUCENCY BENEATH RIGHT MIRIAN DIAPHRAGM. CT RECOMMENDED. FREE AIR NOT EXCLUDED
--- NOTE | 2024-07-23 21:30 | DVH ---
Exam: CT CT AB PEL WO CON-NO ORAL OR IV History: epig pain n/ Comparison Study: ECID on DOS: 02/11/22 TECHNIQUE: Multidetector CT of the abdomen was performed from lung bases to pubic symphysis. Imaging was performed without IV contrast. Axial, coronal and sagittal multiplanar reformats were obtained fr om the axial data set by the technologist. Radiation Dose Information: CT Dose: CTDI volume is 23.79 mGy. Dose-length product is 1356.94 mGy*cm FINDINGS: Evaluation of solid organs is limited due to lack of intravenous contrast use. Findings: Lung Bases: No acute or significant lung base finding. Normal heart size. No pleural or pericardial effusion. Liver: The liver is normal in size. No focal lesions. Gallbladder and Biliary Tree: Small Calcified gallstones. Spleen: Unremarkable Pancreas: The pancreas is grossly normal in appearance. Adrenal Glands: Unremarkable Kidneys: Kidneys are grossly normal without calculi or hydronephrosis. Bladder: Grossly unremarkable for degree of distention. Bowel: Very large hiatal hernia measuring 23 cm in transverse dimension and 13 cm cranial caudal dime nsion. It contains mesenteric fat stomach and bowel creating atelectasis in both the right and left l ower lung eagle.. Small bowel and colon are normal in caliber and distribution. The appendix is not visualized; however, no secondary findings of acute appendicitis identified. Ascites: Absent Lymphadenopathy: No mesenteric, retroperitoneal or periportal lymphadenopathy. Abdominal Wall and Mesentery: Unremarkable. Vasculature: The visualized abdominal aorta is normal in size and caliber. Filter in the inferior greta a cava. Evaluation of abdominal and pelvic vessels is limited due to lack of intravenous contrast. Pelvic Organs: Unremarkable Musculoskeletal: No aggressive focal bony lesions, acute fractures or dislocation. 2-3 mm anterior sp ondylolisthesis L4-L5. Soft tissues: Unremarkable IMPRESSION: 1. Large hiatal hernia measuring 24 cm in transverse dimension and 13 cm in cranial caudal dimension. The hernia contains mesenteric fat stomach and bowel. It is compressing the lower lung eagle bilat erally 2. Small gallstones. 3. Filter noted in the inferior vena cava. This is a TrapEase filter and is inferior to the renal ve ins. 4. 2-3 mm anterior spondylolisthesis L4-5. Radiation optimization: All CT scans at this facility use at least one of these dose optimization michelle hniques: automated exposure control mA and/or kV adjustment per patient size (includes targeted exam s where dose is matched to clinical indication) or iterative reconstruction.
[2024-07-23] MEDS: FUROSEMIDE 40 MG/4 ML VIAL IV ONE (22:21)
[2024-07-23] MEDS: fentaNYL CITRATE 100 MCG/2 ML VL IV ONE (22:21)
[2024-07-24] VITALS (9 sets, daily range): BP systolic 102–140; BP diastolic 65–75; PULSE 69–89; RESP 16–20; TEMP 96.5–98.7; O2SAT 90–100
--- NOTE | 2024-07-24 01:08 | DVHHP2 ---
History of Present Illness History of Present Illness Patient is 84 years old male with past medical history of atrial fibrillation on Coumadin, DVT in the right leg on IVC filter, hypertension, thyroid disease, hyperlipidemia, asthma, arthritis came with a complaint of abdominal pain. As per patient patient has been having intractable abdominal pain began yesterday, crampy, sharp, 9/10, sudden onset, aggravated with movement. Patient also endorsed nausea but no vomiting. Patient reported she has chronic shortness of breath for over ER and also chronic leg swelling. Patient also reported chronic cough,scanty mucus production especially in the morning. IVC filter was placed in 2010 as per patient. Initial lab workup was negative for troponin I and BNP and lipase. CT abdomen and pelvis revealed-1. Large hiatal hernia measuring 24 cm in transverse dimension and 13 cm in cranial caudal dimension. The hernia contains mesenteric fat stomach and bowel. It is compressing the lower lung eagle bilaterally, Small gallstones. Filter noted in the inferior vena cava. This is a TrapEase filter and is inferior to the renal veins. 2-3 mm anterior spondylolisthesis L4-5. Past Surgical History Thyroidectomy due to thyroid nodule, post biopsy, hemorrhoidectomy, hysterectomy Past Social History Lives alone, use wheelchair, denies smoking/alcoholism/drug abuse Review of Systems Review of Systems Allergy-codeine, hydromorphone, iodine, Levofloxacillin, penicillin, propoxyphene Patient was seen today at the bedside. Cardiovascular- deny acute chest painor palpitation Respiratory denies wheezing Gastrointestinal- denies any rectal bleeding, vomiting Musculoskeletal-denies acute joint swelling or tenderness or redness Neurological- denies acute dysarthria, dysphagia, change in vision Psychiatry- denies depression or SI or HI Skin- denies acute rash or purpura Allergies: Coded Allergies: Levofloxacin (Verified Allergy, Mild, ITCHING TO SITE OF IV INSERTION WITH REDNESS, 10/10/13) Codeine (Verified Allergy, Unknown, 07/13/18) Hydromorphone (Unverified Allergy, Unknown, 07/13/18) Iodine (Verified Allergy, Unknown, 07/13/18) FROM IODINE CONTRAST Penicillins (Verified Allergy, Unknown, 07/13/18) Propoxyphene (Verified Allergy, Unknown, 09/05/13) Medications Current Medications Medications Dose Ordered Sig/Fernando Route Start Time Stop Time Status Last Admin Dose Admin Furosemide 20 mg DAILY PO 07/24/24 10:00 Levothyroxine Sodium 50 mcg QAM PO 07/24/24 07:00 Sennosides 8.6 mg DAILY PO 07/24/24 10:00 Patient Own Medication 1 tab DAILY PO 07/24/24 10:00 UNV Atorvastatin Calcium 40 mg HS PO 07/24/24 22:00 Cholecalciferol 2,000 unit DAILY PO 07/24/24 10:00 Pantoprazole Sodium 40 mg QAM PO 07/24/24 07:00 Exam Vital Signs Vital Signs Date Time Temp Pulse Resp B/P (MAP) Pulse Ox O2 Delivery O2 Flow Rate FiO2 07/24/24 00:00 98.1 74 16 138/79 (98) 96 98.1 07/23/24 20:11 Room Air* 0 21 Exam General examination- awake, alert, oriented, obese HEENT- PEERLA, no acute nasal discharge Cardiovascular- S1-S2 audible, rate and rhythm regular, no murmur Respiratory- CTAB, no wheeze or rhonchi Gastrointestinal-epi gastric mild tenderness+, bowel sound+. Nondistended Musculoskeletal-no acute joint swelling or tenderness or redness Lower extremity- right lower extremity swelling+ likely due to chronic DVT Neurological- cranial nerves intact, no acute dysarthria or dysphagia Psychiatry- denies depression or SI or HI Skin- no acute rash or purpura Labs/Xrays Labs Test 07/24/24 00:43 07/23/24 20:40 07/23/24 19:59 07/23/24 19:55 Range/Units Troponin I High Sensitivity < 3 L </=34 ng/L POC Glucose 103 70-106 mg/dl White Blood Count 9.6 4.4-10.8 10^3/uL Red Blood Count 5.05 4.0-5.20 10^6/uL Hemoglobin 15.1 12.2-16.2 g/dL Hematocrit 46.4 H 36.0-46.0 % Mean Corpuscular Volume 91.9 80.0-100.0 fL Mean Corpuscular Hemoglobin 29.9 28.0-32.0 pg Mean Corpuscular Hemoglobin Concent 32.5 32.0-36.0 g/dL Red Cell Distribution Width 13.3 11.8-14.3 % Platelet Count 210 140-450 10^3/uL Mean Platelet Volume 8.4 6.9-10.8 fL Neutrophils (%) (Auto) 52.6 37.0-80.0 % Lymphocytes (%) (Auto) 36.7 10.0-50.0 % Monocytes (%) (Auto) 9.2 0.0-12.0 % Eosinophils (%) (Auto) 1.2 0.0-7.0 % Basophils (%) (Auto) 0.3 0.0-2.0 % Neutrophils # (Auto) 5.0 1.6-8.6 10 ^3/uL Lymphocytes # (Auto) 3.5 0.4-5.4 10 ^3/uL Monocytes # (Auto) 0.9 0-1.3 10 ^3/uL Eosinophils # (Auto) 0.1 0-0.8 10 ^3/uL Basophils # (Auto) 0 0-0.2 10 ^3/uL Nucleated Red Blood Cells 0.1 % Sodium Level 140 136-145 mmol/L Potassium Level 4.3 3.5-5.1 mmol/L Chloride Level 107 98-107 mmol/L Carbon Dioxide Level 23 20-31 mmol/L Anion Gap 10 5-15 Blood Urea Nitrogen 19 9-23 mg/dL Creatinine 0.59 0.550-1.02 mg/dL Glomerular Filtration Rate Calc 89 >90 mL/min BUN/Creatinine Ratio 32.2 H 10.0-20.0 Serum Glucose 97 74-106 mg/dL Lactic Acid Level 1.1 0.4-2.0 mmol/L Calcium Level 9.4 8.7-10.4 mg/dL Total Bilirubin 0.4 0.2-1.0 mg/dL Aspartate Amino Transferase (AST) 16 13-40 U/L Alanine Aminotransferase (ALT) 12 7-40 U/L Alkaline Phosphatase 93 46-116 U/L B-Type Natriuretic Peptide 35.92 0-100 pg/mL Total Protein 5.9 5.7-8.2 g/dL Albumin 4.2 3.2-4.8 g/dL Lipase 50 12-53 U/L Assessment/Plan Assessment/Plan Assessment and plan Intractable abdominal pain with nausea likely due to acute girma ritis/pancreatitis Hiatus hernia, ruled out obstructive hiatal hernia Right lower extremity swelling likely due to chronic DVT, patient on warfarin History of CHF Atrial fibrillation, rate control History of right lower extremity DVT, on warfarin Hypothyroidism, status post partial thyroidectomy due to thyroid nodule Hiatus hernia Arthritis Hyperlipidemia Asthma spondylolisthesis L4-5. Plan Ordered ultrasound of the gallbladder to rule out acute cholecystitis Resume home medications atorvastatin, pantoprazole, levothyroxine, warfarin, Lasix Ordered surgery consult for further evaluation and care of hiatus hernia, rule out obstructive hiatus hernia Ordered echo 2D Goals of care, Code status ; discussed with >15 minutes PUD prophylaxis: Omeprazole DVT prophylaxis: Patient on warfarin Plan discussed with Dr. Perez , nursing staff, Total time spent on patient evaluation, chart review, assessment and plan, discussion discussion >35 minutes Plan discussed with: Patient, Other (RN) My Orders Orders - LEAH ZIEGLER Procedure Category Date Status Time Admit ADMIT 07/23/24 Transmitted 23:57 Notify Of Changes TAWANA 07/23/24 In Process From Base 23:57 Furosemide Tablet PHA 07/24/24 In Process (Lasix Tablet) 10:00 Levothyroxine Tablet PHA 07/24/24 In Process (Synthroid Tablet) 07:00 Senna Pod Tablet PHA 07/24/24 In Process (Senokot Tablet) 10:00 (Nf) Warfarin Sodium PHA 07/24/24 Pending (Coumadin) 10:00 Basic Metabolic Panel LAB 07/24/24 Logged 04:00 Echo 2d Mode Cardiac US 07/24/24 Logged DOP 00:14 PTPTT LAB 07/24/24 In Process 00:25 Atorvastatin (Lipitor) PHA 07/24/24 In Process 22:00 Cholecalciferol PHA 07/24/24 In Process Tablet (Vitamin D3 10:00 Pantoprazole Tablet PHA 07/24/24 In Process (Protonix Tablet) 07:00 * Surgical Consult CONS 07/24/24 Transmitted Date of Service: July 23, 2024 Billing Provider: IRIS PEREZ MD Common Visit Codes: [id number] INP/OBS CARE (HIGH) Secondary Visit Codes: [id number] CARE PLAN 30 MINUTES LEAH ZIEGLER July 24, 2024 01:08
[2024-07-24 01:14] LABS: INR 1.78 (0.9-1.15); Partial Thromboplastin Time 30.1 SEC (24.5-34.5); Prothrombin Time 17.8 sec (9.3-11.8)
[2024-07-24] MEDS ORDERED: traMADol HCL 50 MG TAB PO ONE (02:00)
[2024-07-24] MEDS: PANTOPRAZOLE 40 MG TAB PO SCH (05:46)
[2024-07-24] MEDS: LEVOTHYROXINE SODIUM 50 MCG TAB PO SCH (05:46)
[2024-07-24] MEDS ORDERED: OMEPRAZOLE 40 MG PO SCH (07:00)
[2024-07-24 07:58] LABS: Anion Gap 9 (5-15); Carbon Dioxide 28 mmol/L (20-31); Chloride 106 mmol/L (98-107); Sodium 143 mmol/L (136-145)
[2024-07-24 07:59] LABS: Calcium 9.9 mg/dL (8.7-10.4)
[2024-07-24 08:00] LABS: Potassium 3.5 mmol/L (3.5-5.1)
[2024-07-24 08:04] LABS: BUN/Creatinine Ratio 26.7 (10.0-20.0); Blood Urea Nitrogen 16 mg/dL (9-23); Glucose 88 mg/dL (74-106)
[2024-07-24] MEDS ORDERED: PATIENTS OWN MEDICATION (Warfarin Sodium (Coumadin) 1 TAB) PO SCH ×2 (09:15→10:00)
[2024-07-24] MEDS ORDERED: PATIENTS OWN MEDICATION (Cholecalciferol (Vitamin D3) 1 TAB) PO SCH (10:00)
[2024-07-24] MEDS: PROPRANOLOL HCL 20 MG TAB PO SCH (10:45)
[2024-07-24] MEDS ORDERED: SUCRALFATE 1 GM/10 ML ORAL SUSP PO ONE (10:45)
[2024-07-24] MEDS: SUCRALFATE 1 GM/10 ML ORAL SUSP PO SCH (11:16)
[2024-07-24] MEDS: CHOLECALCIFEROL (VITD3) 1,000UNIT=25mCg TAB PO SCH (11:16)
[2024-07-24] MEDS: SENNA 8.6 MG TAB PO SCH (11:16)
[2024-07-24] MEDS: FUROSEMIDE 20 MG TAB PO SCH (11:17)
[2024-07-24] MEDS: ACETAMINOPHEN 325 MG TAB PO PRN (11:17)
[2024-07-24] MEDS: SUCRALFATE 1 GM/10 ML ORAL SUSP GT ONE (11:25)
--- NOTE | 2024-07-24 11:30 | DVHINCON2 ---
Date of service: July 24, 2024 History of Present Illness 84-year-old female with a chronic history of hiatal hernia, atrial fibrillation on Coumadin, DVT with IVC also on Coumadin, admitted secondary to epigastric abdominal pain associated with nausea. Patient denies any fevers or chills. Patient is able to tolerate full liquid diet at this time. Past Medical History History of hiatal hernia. Atrial fibrillation on Coumadin. History of DVT with IVC filter. Hypertension. Hyperlipidemia. Asthma. CHF. Past Surgical History Thyroidectomy. Hysterectomy. Tubal ligation. Family History: Family history: Arthritis Family history: Cardiovascular disease G8 FATHER, Onset:60 years & older Stroke G8 FATHER, Onset:60 years & older Family History Noncontributory Social History No alcohol, tobacco, IV drug use Allergies: Coded Allergies: Levofloxacin (Verified Allergy, Mild, ITCHING TO SITE OF IV INSERTION WITH REDNESS, 10/10/13) Codeine (Verified Allergy, Unknown, 07/13/18) Hydromorphone (Unverified Allergy, Unknown, 07/13/18) Iodine (Verified Allergy, Unknown, 07/13/18) FROM IODINE CONTRAST Penicillins (Verified Allergy, Unknown, 07/13/18) Propoxyphene (Verified Allergy, Unknown, 09/05/13) Home Meds Active Scripts Senna (Senna Laxative) 8.6 Mg Tab, 8.6 MG PO DAILY, #5 TAB Prov:CARA DURAN MD 04/23/21 Reported Medications Cholecalciferol (VITAMIN D3) 2,000 Unit Tab, 1 TAB PO DAILY, #30 TAB 5 Refills 07/13/18 Furosemide (Lasix) 20 Mg Tb, 1 TAB PO DAILY, #90 TAB 1 Refill 07/13/18 Warfarin Sodium (Coumadin) 3 Mg Tab, 1 TAB PO DAILY, #30 TAB 5 Refills 07/13/18 Atorvastatin Calcium (ATORVASTATIN CALCIUM) 40 Mg Tab, 1 TAB PO QPM, #90 TAB 3 Refills 07/13/18 Omeprazole (Omeprazole) 20 Mg Cap, 40 MG PO QAM, CAP 07/13/18 Propranolol Hcl (Inderal La) 60 Mg Cap, 40 MG PO BID, CAP 10/09/13 Levothyroxine Sodium (Levothyroxine Sodium) 50 Mcg Tab, 50 MCG PO QAM 11/28/12 Current Medications Current Medications Medications (Trade) Dose Ordered Sig/Fernando Route PRN Reason Start Time Stop Time Status Last Admin Furosemide (Lasix Tablet) 20 mg DAILY PO 07/24/24 10:00 07/24/24 11:17 Levothyroxine Sodium (Synthroid Tablet) 50 mcg QAM PO 07/24/24 07:00 07/24/24 05:46 Sennosides (Senokot Tablet) 8.6 mg DAILY PO 07/24/24 10:00 07/24/24 11:16 Patient Own Medication 1 tab QPM PO 07/24/24 18:00 07/24/24 00:26 DC Patient Own Medication 1 tab DAILY PO 07/24/24 10:00 07/24/24 00:26 DC Patient Own Medication 40 mg QAM PO 07/24/24 07:00 07/24/24 00:26 DC Patient Own Medication 1 tab DAILY PO 07/24/24 10:00 07/24/24 09:17 DC Atorvastatin Calcium (Lipitor) 40 mg HS PO 07/24/24 22:00 Cholecalciferol (Vitamin D3 Tablet) 2,000 unit DAILY PO 07/24/24 10:00 07/24/24 11:16 Pantoprazole Sodium (Protonix Tablet) 40 mg QAM PO 07/24/24 07:00 07/24/24 08:34 DC 07/24/24 05:46 Acetaminophen (Tylenol Tablet) 650 mg Q4HP PRN PO MODERATE PAIN (4-6 PAIN SCALE) 07/24/24 03:00 07/24/24 11:17 Pantoprazole Sodium (Protonix) 40 mg BID IV 07/24/24 22:00 Sucralfate (Carafate Susp) 1 gm TID@0600,1130,2200 PO 07/24/24 11:30 07/24/24 11:16 Patient Own Medication 1 tab DAILY PO 07/24/24 09:15 UNV Warfarin Sodium (Coumadin Per Rx Protocol) RX PROTOCOL PER PHARMACY PO 07/24/24 09:30 UNV Propranolol HCl (Inderal Tablet) 40 mg BID PO 07/24/24 10:45 07/24/24 10:45 Vital Signs Vital Signs Date Time Temp Pulse Resp B/P (MAP) Pulse Ox O2 Delivery O2 Flow Rate FiO2 07/24/24 11:17 126/67 07/24/24 10:45 84 5/31/25 08:52 96.7 16 95 96.7 07/24/24 08:00 Nasal Cannula* 2 28 Physical Exam GEN: Obese elderly female in no acute distress. Alert. HEENT: Normocephalic atraumatic. Moist mucous membranes. Anicteric sclerae. CV: RRR Respiratory: Coarse breath sounds ABD: Infraumbilical midline incisional scar. Slightly obese abdomen with very minimal epigastric tenderness to palpation without guarding or rebound. Nondistended. CT of the abdomen and pelvis: Large hiatal hernia measuring 24 cm x 13 cm containing mesenteric fat, stomach and bowel. Small gallstones. Inferior vena cava filter. Labs/Diagnostic Data Labs Test 07/24/24 06:23 07/24/24 00:43 07/23/24 20:40 07/23/24 19:59 Range/Units Sodium Level 143 136-145 mmol/L Potassium Level 3.5 3.5-5.1 mmol/L Chloride Level 106 98-107 mmol/L Carbon Dioxide Level 28 20-31 mmol/L Anion Gap 9 5-15 Blood Urea Nitrogen 16 9-23 mg/dL Creatinine 0.60 0.550-1.02 mg/dL Glomerular Filtration Rate Calc 88 >90 mL/min BUN/Creatinine Ratio 26.7 H 10.0-20.0 Serum Glucose 88 74-106 mg/dL Hemoglobin A1c 5.4 <5.7 % A1C Calcium Level 9.9 8.7-10.4 mg/dL Vitamin D 25-Hydroxy 58.3 30.0-100 ng/mL Prothrombin Time 17.8 H 9.3-11.8 sec Prothrombin Time INR 1.78 H 0.9-1.15 Activated Partial Thromboplast Time 30.1 24.5-34.5 SEC Troponin I High Sensitivity < 3 L </=34 ng/L POC Glucose 103 70-106 mg/dl Test 07/23/24 19:55 Range/Units White Blood Count 9.6 4.4-10.8 10^3/uL Red Blood Count 5.05 4.0-5.20 10^6/uL Hemoglobin 15.1 12.2-16.2 g/dL Hematocrit 46.4 H 36.0-46.0 % Mean Corpuscular Volume 91.9 80.0-100.0 fL Mean Corpuscular Hemoglobin 29.9 28.0-32.0 pg Mean Corpuscular Hemoglobin Concent 32.5 32.0-36.0 g/dL Red Cell Distribution Width 13.3 11.8-14.3 % Platelet Count 210 140-450 10^3/uL Mean Platelet Volume 8.4 6.9-10.8 fL Neutrophils (%) (Auto) 52.6 37.0-80.0 % Lymphocytes (%) (Auto) 36.7 10.0-50.0 % Monocytes (%) (Auto) 9.2 0.0-12.0 % Eosinophils (%) (Auto) 1.2 0.0-7.0 % Basophils (%) (Auto) 0.3 0.0-2.0 % Neutrophils # (Auto) 5.0 1.6-8.6 10 ^3/uL Lymphocytes # (Auto) 3.5 0.4-5.4 10 ^3/uL Monocytes # (Auto) 0.9 0-1.3 10 ^3/uL Eosinophils # (Auto) 0.1 0-0.8 10 ^3/uL Basophils # (Auto) 0 0-0.2 10 ^3/uL Nucleated Red Blood Cells 0.1 % Lactic Acid Level 1.1 0.4-2.0 mmol/L Total Bilirubin 0.4 0.2-1.0 mg/dL Aspartate Amino Transferase (AST) 16 13-40 U/L Alanine Aminotransferase (ALT) 12 7-40 U/L Alkaline Phosphatase 93 46-116 U/L B-Type Natriuretic Peptide 35.92 0-100 pg/mL Total Protein 5.9 5.7-8.2 g/dL Albumin 4.2 3.2-4.8 g/dL Lipase 50 12-53 U/L Assessment 1. Large hiatal hernia without signs of obstruction. 2. Atrial fibrillation on Coumadin 3. CHF 4. History of DVTs with IVC Plan/Recommendation 1. Currently patient does not show symptoms of obstruction or signs of strangulation of hernia contents. Due to all her comorbidities, recommend GI and cardiac workup prior to possible surgery. I do recommend an outpatient surgery possibly with robotic surgery at a facility that has mesh that may be required in order to repair this large hiatal hernia. Plan discussed with: Patient FAITH HEARN MD July 24, 2024 11:30
--- NOTE | 2024-07-24 11:46 | DVHPNRES ---
Progress Note Date Seen: July 24, 2024 Resident Creating Document: CARMEN JOSEPH RESIDENT Has the PT tested + for MRSA If YES, has PT been informed?: No Medical Necessity Reason Pt with a Central, PICC or Fol: No Subjective Review of Systems Ruby Mcdaniel is an 84-year-old female with a complex medical history including Afib & DVT Rt leg on Coumadin, with an IVC filter, HTN, thyroid disease, HLD, asthma, arthritis, and CHF, who presented with complaints of abdominal pain. The patient reported a history of a mild hiatal hernia diagnosed in 2010, which was noted to have enlarged significantly during a hospitalization three years ago, at which time surgical intervention was considered but ultimately deferred. The current episode of abdominal pain began yesterday, described as crampy, sharp, sudden in onset, and rated 9/10 in intensity. The pain is aggravated by movement. The patient also endorsed nausea without vomiting. She reported chronic shortness of breath for over a year and chronic bilateral leg swelling attributed to CHF, under the care of Dr. Panchal (electrical continuity tester). Additional symptoms include a chronic cough with scant mucus production and morning- predominant reflux symptoms. Initial laboratory workup was negative for troponin I, BNP, and lipase. A CT scan of the abdomen and pelvis revealed a large hiatal hernia measuring 24 cm transversely and 13 cm cranio-caudally, containing mesenteric fat, stomach, and bowel, with compression of the lower lung eagle bilaterally. Additional findings included small gallstones, a TrapEase IVC filter located inferior to the renal veins, and 23 mm anterior spondylolisthesis at L4L5. ROS: The patient was seen and examined at the bedside. She reported ongoing acid reflux, mild nausea, and increased secretions. She also noted palpitations, which she attributed to missing her blood pressure medication today. Objective vital signs Vital Sign Date Time Temp Pulse Resp B/P (MAP) Pulse Ox O2 Delivery O2 Flow Rate FiO2 07/24/24 11:17 126/67 07/24/24 10:45 84 07/24/24 08:52 96.7 16 95 96.7 07/24/24 08:00 Nasal Cannula* 2 28 Total Intake and Output 07/23/24 07/23/24 07/24/24 15:00 23:00 07:00 Intake Total 240 ml Output Total 3100 ml Balance -2860 ml medications Current Medications Medications Dose Ordered Sig/Fernando Route Start Time Stop Time Status Last Admin Dose Admin Furosemide 20 mg DAILY PO 07/24/24 10:00 07/24/24 11:17 20 MG Levothyroxine Sodium 50 mcg QAM PO 07/24/24 07:00 07/24/24 05:46 50 MCG Sennosides 8.6 mg DAILY PO 07/24/24 10:00 07/24/24 11:16 8.6 MG Atorvastatin Calcium 40 mg HS PO 07/24/24 22:00 Cholecalciferol 2,000 unit DAILY PO 07/24/24 10:00 07/24/24 11:16 2,000 UNIT Acetaminophen 650 mg Q4HP PRN PO 07/24/24 03:00 07/24/24 11:17 650 MG Pantoprazole Sodium 40 mg BID IV 07/24/24 22:00 Sucralfate 1 gm TID@0600,1130,2200 PO 07/24/24 11:30 07/24/24 11:16 1 GM Patient Own Medication 1 tab DAILY PO 07/24/24 09:15 UNV Warfarin Sodium RX PROTOCOL PER PHARMACY PO 07/24/24 09:30 UNV Propranolol HCl 40 mg BID PO 07/24/24 10:45 07/24/24 10:45 40 MG Examination Pt is lying on bed General Appearance: Alert, Oriented X3, Cooperative, Not in acute distress HEENT: Atraumatic, Mucous membranes moist/pink Respiratory: Clear to auscultation, Normal air movement, No added sounds Cardiovascular: Regular rate, Normal S1, Normal S2, No murmurs Abdominal: Active bowel sounds, Soft, no distention, epigastric tenderness Extremities: Trace edema, Normal pulses, No tenderness Skin: No Significant rash, except past surgical scars Neuro: Normal speech, paraplegic Psych/Mental Status: Mental status NL, Mood NL Nurse was there as double cut sawyer during examination laboratory and microbiology Laboratory Tests 07/24/24 06:23 07/23/24 19:55 Test 07/24/24 06:23 Range/Units Serum Glucose 88 74-106 mg/dL Labs and/or images reviewed: Labs reviewed by me, Image(s) reviewed by me Problem List/Assessment/Plan Problem List/Assessment/Plan # Epigastric pain # Large hiatal hernia # GERD & acute gastritis # Cholelithiasis - Protonix IV and Carafate p.o. q.i.d. - surgical consult for possible surgical evaluation - CT ABD/pelvis showed large hiatal hernia measuring 24 x 13 cm, containing mesenteric fat, stomach, and bowel, with compression of the lower lung eagle bilaterally. along with small gallstones # Un controlled HTN possible urgency # Hx of Afib with a secondary hypercoagulable state # Hx of DVT- s/p IVC filter - continuously monitoring blood pressure - continue propranolol 40 mg b.i.d. - on warfarin # Chronic systolic versus diastolic CHF - continue propranolol and Lasix - ordered echocardiogram - consulted Dr. Panchal # Anterior spondylolisthesis L4L5- CT abdomen/ pelvis. Conservative management for now. Outpatient follow up with spine surgeon. # Hypothyroidism, status post partial thyroidectomy due to thyroid nodule - continue levothyroxine # Arthritis - no active issues # Hyperlipidemia - on statin # Asthma - not in exacerbation # History of polio - paraplegic; no active issues Protonix Warfarin Goals of care discussed with the patient for 20 minutes: Full code status Case discussed with Dr. Saleh, patient and nurse Plan discussed with: Patient, Other (RN) My Orders My Orders Orders - CARMEN JOSEPH RESIDENT Procedure Category Date Status Time Pantoprazole PHA 07/24/24 In Process (Protonix) 22:00 Sucralfate Susp PHA 07/24/24 In Process (Carafate Susp) 11:30 Propranolol Hcl PHA 07/24/24 In Process Tablet (Inderal 10:45 *Cons[address] Dr[address] Panchal CONS 07/24/24 Transmitted [place]unasalam 11:26 Addendum Addendum Addendum I was physically present for the chan portions of the service provided to patient by THE RESIDENT. I have reviewed the documentation, discussed the case with resident and agree with the resident's documentation except as noted. Also the patient's clinical case was discussed with the patient's nurse. This medical document was created using an electronic medical record system with computerized dictation system. Although this document has been carefully reviewed, there might still be some phonetic and typographical errors. These areas are purely typographical due to imperfections of the software programs, and do not reflect any compromise in the patient's medical care. Late signature. Date of Service: July 24, 2024 Billing Provider: KEVON SALEH MD Common Visit Codes: [id number] INP/OBS CARE(HIGH) Secondary Visit Codes: [id number] CARE PLAN 30 MINUTES (20 minutes) CARMEN JOSEPH RESIDENT July 24, 2024 11:46 KEVON SALEH MD Jul 25, 2024 13:10
[2024-07-24] MEDS ORDERED: PATIENTS OWN MEDICATION (Atorvastatin Calcium 1 TAB) PO SCH (18:00)
[2024-07-24] MEDS: WARFARIN SODIUM 1 MG TAB PO ONE (18:20)
[2024-07-24] MEDS: ATORVASTATIN 20 MG TAB PO SCH (21:51)
[2024-07-24] MEDS: PANTOPRAZOLE 40 MG/10 ML VIAL INJ IV SCH (21:54)
[2024-07-25] VITALS (8 sets, daily range): BP systolic 106–133; BP diastolic 55–73; PULSE 69–97; RESP 14–18; TEMP 97.5–98.1; O2SAT 95–97
[2024-07-25 07:15] LABS: Basophils # (auto) 0 10 ^3/uL (0-0.2); Basophils % (auto) 0.3 % (0.0-2.0); Eosinophils # (auto) 0.2 10 ^3/uL (0-0.8); Eosinophils % (auto) 2.1 % (0.0-7.0); Hematocrit 47.5 % (36.0-46.0); Hemoglobin 15.5 g/dL (12.2-16.2); Lymphocytes % (auto) 38.3 % (10.0-50.0); Mean Corpuscular Hemoglobin 29.8 pg (28.0-32.0); Mean Corpuscular Hgb Conc. 32.7 g/dL (32.0-36.0); Mean Corpuscular Volume 91.1 fL (80.0-100.0); Monocytes # (auto) 0.7 10 ^3/uL (0-1.3); Monocytes % (auto) 9.3 % (0.0-12.0); Neutrophils # (auto) 3.9 10 ^3/uL (1.6-8.6); Nucleated Red Blood Cells % 0.1 %; Platelet Count (auto) 224 10^3/uL (140-450); Red Blood Cells 5.21 10^6/uL (4.0-5.20); Red Cell Distribution Width 13.2 % (11.8-14.3); White Blood Cell 7.9 10^3/uL (4.4-10.8)
[2024-07-25 07:23] LABS: Anion Gap 6 (5-15); Carbon Dioxide 29 mmol/L (20-31); Chloride 107 mmol/L (98-107); Potassium 3.7 mmol/L (3.5-5.1); Sodium 142 mmol/L (136-145)
[2024-07-25 07:24] LABS: Calcium 10.1 mg/dL (8.7-10.4)
[2024-07-25 07:29] LABS: BUN/Creatinine Ratio 24.1 (10.0-20.0); Blood Urea Nitrogen 14 mg/dL (9-23); Glucose 90 mg/dL (74-106)
[2024-07-25 07:42] LABS: INR 1.87 (0.9-1.15); Partial Thromboplastin Time 33.9 SEC (24.5-34.5); Prothrombin Time 18.6 sec (9.3-11.8)
--- NOTE | 2024-07-25 14:51 | DVHPN2 ---
Progress Note - Dictate Date Seen: Jul 25, 2024 Has the PT tested + for MRSA If YES, has PT been informed?: No Medical Necessity Reason Pt with a Central, PICC or Fol: No Subjective E: no major events o/n. feels better with less abd pain. aziza diet. vital signs Vital Sign Date Time Temp Pulse Resp B/P (MAP) Pulse Ox O2 Delivery O2 Flow Rate FiO2 07/25/24 13:00 98.0 70 16 133/67 (89) 97 98.0 07/25/24 08:00 Nasal Cannula* 2 28 Total Intake and Output 07/24/24 07/24/24 07/25/24 15:00 23:00 07:00 Intake Total 600 ml 400 ml Output Total 500 ml 400 ml Balance 100 ml 0 ml medications Current Medications Medications Dose Ordered Sig/Fernando Route Start Time Stop Time Status Last Admin Dose Admin Furosemide 20 mg DAILY PO 07/24/24 10:00 07/25/24 10:04 20 MG Levothyroxine Sodium 50 mcg QAM PO 07/24/24 07:00 07/25/24 06:27 50 MCG Sennosides 8.6 mg DAILY PO 07/24/24 10:00 07/25/24 10:03 8.6 MG Atorvastatin Calcium 40 mg HS PO 07/24/24 22:00 07/24/24 21:51 40 MG Cholecalciferol 2,000 unit DAILY PO 07/24/24 10:00 07/25/24 10:04 2,000 UNIT Acetaminophen 650 mg Q4HP PRN PO 07/24/24 03:00 07/25/24 06:31 650 MG Pantoprazole Sodium 40 mg BID IV 07/24/24 22:00 07/25/24 10:03 40 MG Sucralfate 1 gm TID@0600,1130,2200 PO 07/24/24 11:30 07/25/24 10:12 1 GM Patient Own Medication 1 tab DAILY PO 07/24/24 09:15 UNV Warfarin Sodium RX PROTOCOL PER PHARMACY PO 07/24/24 09:30 Propranolol HCl 40 mg BID PO 07/24/24 10:45 07/25/24 10:04 40 MG objective GEN: NAD ABD: less TTP. no G/R. laboratory and microbiology Laboratory Tests 07/25/24 06:26 Test 07/25/24 06:26 Range/Units Serum Glucose 90 74-106 mg/dL Assessment/Plan A: 1. Large hiatal hernia without signs of obstruction. 2. Atrial fibrillation on Coumadin 3. CHF 4. History of DVTs with IVC P: 1. elective outpatient surgery at [facility]. Dietary Evaluation Review Recommendations by RD: Dietary education by RD, Protein Supplementation Comments: 1) Initiate Pro-Stat @ 30 mL qd 2) Initiate multivitamin @ 1 tb qd 3) Advance to cardiac diet when medicaly feasible, pending [employer] approval 4) Refer to outpatient RD for weight management 5) Follow up with cardiology and gastroenterology 6) Continue to monitor I&O, labs, and skin integrity Expected Outcomes/Goals: 1) appetite and labs to improve 2) diet to advance 3) wound to improve 4) f/u in 3-5 days Plan discussed with: Patient FAITH HEARN MD Jul 25, 2024 14:51
[2024-07-25] MEDS: WARFARIN SODIUM 1 MG TAB PO ONE (18:21)
--- NOTE | 2024-07-25 18:44 | DVHPNRES ---
Progress Note Date Seen: Jul 25, 2024 Resident Creating Document: MIN LOWRY RESIDENT Has the PT tested + for MRSA If YES, has PT been informed?: No Medical Necessity Reason Pt with a Central, PICC or Fol: No Subjective Review of Systems Patient seen and examined at bedside Epigastric pain resolved Mild gastric reflux, no nausea or vomiting No any other new acute symptoms Objective vital signs Vital Sign Date Time Temp Pulse Resp B/P (MAP) Pulse Ox O2 Delivery O2 Flow Rate FiO2 07/25/24 17:00 97.5 69 14 106/63 (77) 95 97.5 07/25/24 08:00 Nasal Cannula* 2 28 Total Intake and Output 07/24/24 07/24/24 07/25/24 15:00 23:00 07:00 Intake Total 600 ml 400 ml Output Total 500 ml 400 ml Balance 100 ml 0 ml medications Current Medications Medications Dose Ordered Sig/Fernadno Route Start Time Stop Time Status Last Admin Dose Admin Furosemide 20 mg DAILY PO 07/24/24 10:00 07/25/24 10:04 20 MG Levothyroxine Sodium 50 mcg QAM PO 07/24/24 07:00 07/25/24 06:27 50 MCG Sennosides 8.6 mg DAILY PO 07/24/24 10:00 07/25/24 10:03 8.6 MG Atorvastatin Calcium 40 mg HS PO 07/24/24 22:00 07/24/24 21:51 40 MG Cholecalciferol 2,000 unit DAILY PO 07/24/24 10:00 07/25/24 10:04 2,000 UNIT Acetaminophen 650 mg Q4HP PRN PO 07/24/24 03:00 07/25/24 06:31 650 MG Pantoprazole Sodium 40 mg BID IV 07/24/24 22:00 07/25/24 10:03 40 MG Sucralfate 1 gm TID@0600,1130,2200 PO 07/24/24 11:30 07/25/24 10:12 1 GM Patient Own Medication 1 tab DAILY PO 07/24/24 09:15 UNV Warfarin Sodium RX PROTOCOL PER PHARMACY PO 07/24/24 09:30 Propranolol HCl 40 mg BID PO 07/24/24 10:45 07/25/24 10:04 40 MG Examination General Appearance: Cooperative. Well developed. Well nourished. NAD Head Exam: Normal inspection Neck Exam: Normal inspection. Non-tender. Normal alignment Pulmonary/Respiratory: Chest non-tender. Clear bilateral breath sounds Cardiovascular/Chest: Regular rate and rhythm. No murmurs. No JVD. Peripheral Pulses: 2+ Radial (R). 2+ Radial (L). 2+ Pedal (R). 2+ Pedal (L) Abdominal Exam: Normal bowel sounds. Soft. Nontender. No hepatosplenomegaly. No masses Ankle Exam: Negative ankle edema Lower extremities: Negative lower extremity edema Neuro/Mental Status: A&O x4. Coherent Thoughts/Psych: Normal thought pattern. Appropriate mood and affect. Good judgement and insight Appearance: In no acute distress Skin Exam: Normal inspection. Normal color. Warm. Dry laboratory and microbiology Laboratory Tests 07/25/24 06:26 Test 07/25/24 06:26 Range/Units Serum Glucose 90 74-106 mg/dL Labs and/or images reviewed: Labs reviewed by me, Image(s) reviewed by me Problem List/Assessment/Plan Problem List/Assessment/Plan # Epigastric pain # Large hiatal hernia # GERD & acute gastritis # Cholelithiasis - Protonix IV and Carafate p.o. q.i.d. - surgical consult : Recommend outpatient elective surgery - CT ABD/pelvis showed large hiatal hernia measuring 24 x 13 cm, containing mesenteric fat, stomach, and bowel, with compression of the lower lung eagle bilaterally. along with small gallstones - GI consultation as per surgery # Un controlled HTN possible urgency # Hx of Afib with a secondary hypercoagulable state # Hx of DVT- s/p IVC filter - continuously monitoring blood pressure - continue propranolol 40 mg b.i.d. 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 Panchal # Anterior spondylolisthesis L4L5 - Conservative management for now. Outpatient follow up with spine surgeon. # Hypothyroidism, status post partial thyroidectomy due to thyroid nodule - continue levothyroxine # Arthritis - no active issues # Hyperlipidemia - on statin # Asthma - not in exacerbation # History of polio - paraplegic; no active issues Protonix Warfarin Case discussed with Dr. Saleh, patient and nurse Plan discussed with: Patient, Other (RN) My Orders My Orders Orders - MIN LOWRY RESIDENT Procedure Category Date Status Time * Gi Dvh Preflight Mechanic CONS 07/25/24 Transmitted 12:19 Dietary Evaluation Review Recommendations by RD: Dietary education by RD, Protein Supplementation Comments: 1) Initiate Pro-Stat @ 30 mL qd 2) Initiate multivitamin @ 1 tb qd 3) Advance to cardiac diet when medicaly feasible, pending RETORT FURNACE OPERATOR approval 4) Refer to outpatient RD for weight management 5) Follow up with cardiology and gastroenterology 6) Continue to monitor I&O, labs, and skin integrity Expected Outcomes/Goals: 1) appetite and labs to improve 2) diet to advance 3) wound to improve 4) f/u in 3-5 days Addendum Addendum Addendum I was physically present for the chan portions of the service provided to patient by THE RESIDENT. I have reviewed the documentation, discussed the case with resident and agree with the resident's documentation except as noted. Also the patient's clinical case was discussed with the patient's nurse. This medical document was created using an electronic medical record system with computerized dictation system. Although this document has been carefully reviewed, there might still be some phonetic and typographical errors. These areas are purely typographical due to imperfections of the software programs, and do not reflect any compromise in the patient's medical care. Late signature. Date of Service: Jul 25, 2024 Billing Provider: KEVON SALEH MD Common Visit Codes: [id number] INP/OBS CARE(HIGH) MIN LOWRY RESIDENT Jul 25, 2024 18:44 KEVON SALEH MD Jul 26, 2024 05:20
[2024-07-25] MEDS ORDERED: MELATONIN 5 MG TAB PO PRN (22:00)
[2024-07-25] MEDS: LACTULOSE 20Gm/30ML SOLN PO PRN (22:15)
[2024-07-25] MEDS: TEMAZEPAM 15 MG CAP PO ONE (22:15)
[2024-07-26] VITALS (8 sets, daily range): BP systolic 120–143; BP diastolic 53–78; PULSE 60–86; RESP 16–17; TEMP 95.6–98.2; O2SAT 91–98
[2024-07-26 08:15] LABS: Basophils # (auto) 0 10 ^3/uL (0-0.2); Basophils % (auto) 0.5 % (0.0-2.0); Eosinophils # (auto) 0.2 10 ^3/uL (0-0.8); Eosinophils % (auto) 2.5 % (0.0-7.0); Hematocrit 44.9 % (36.0-46.0); Hemoglobin 14.9 g/dL (12.2-16.2); Lymphocytes # (auto) 2.5 10 ^3/uL (0.4-5.4); Lymphocytes % (auto) 33.7 % (10.0-50.0); Mean Corpuscular Hemoglobin 30.4 pg (28.0-32.0); Mean Corpuscular Hgb Conc. 33.2 g/dL (32.0-36.0); Mean Corpuscular Volume 91.7 fL (80.0-100.0); Monocytes # (auto) 0.8 10 ^3/uL (0-1.3); Monocytes % (auto) 11.2 % (0.0-12.0); Neutrophils # (auto) 3.8 10 ^3/uL (1.6-8.6); Neutrophils % (auto) 52.1 % (37.0-80.0); Platelet Count (auto) 211 10^3/uL (140-450); White Blood Cell 7.3 10^3/uL (4.4-10.8)
[2024-07-26 08:29] LABS: INR 2.34 (0.9-1.15); Partial Thromboplastin Time 37.6 SEC (24.5-34.5); Prothrombin Time 22.8 sec (9.3-11.8)
[2024-07-26 10:39] LABS: Folate (Folic Acid) 17.51 ng/mL (>5.38)
--- NOTE | 2024-07-26 13:21 | DVHPNRES ---
Progress Note Date Seen: Jul 26, 2024 Resident Creating Document: ELIA CORREA RESIDENT Has the PT tested + for MRSA If YES, has PT been informed?: No Medical Necessity Reason Pt with a Central, PICC or Fol: No Subjective Review of Systems Ruby Mcdaniel is an 84-year-old female with a complex medical history including Afib & DVT Rt leg on Coumadin, with an IVC filter, HTN, thyroid disease, HLD, asthma, arthritis, and CHF, who presented with complaints of abdominal pain. The patient reported a history of a mild hiatal hernia diagnosed in 2010, which was noted to have enlarged significantly during a hospitalization three years ago, at which time surgical intervention was considered but ultimately deferred. The current episode of abdominal pain began yesterday, described as crampy, sharp, sudden in onset, and rated 9/10 in intensity. The pain is aggravated by movement. The patient also endorsed nausea without vomiting. She reported chronic shortness of breath for over a year and chronic bilateral leg swelling attributed to CHF, under the care of Dr. Panchal (manager engine). Additional symptoms include a chronic cough with scant mucus production and morning- predominant reflux symptoms. Initial laboratory workup was negative for troponin I, BNP, and lipase. A CT scan of the abdomen and pelvis revealed a large hiatal hernia measuring 24 cm transversely and 13 cm cranio-caudally, containing mesenteric fat, stomach, and bowel, with compression of the lower lung eagle bilaterally. Additional findings included small gallstones, a TrapEase IVC filter located inferior to the renal veins, and 23 mm anterior spondylolisthesis at L4L5. Patient seen and examined at the bedside. Reports intermittent pain, epigastric. No acute distress. GI consultation pending. Objective vital signs Vital Sign Date Time Temp Pulse Resp B/P (MAP) Pulse Ox O2 Delivery O2 Flow Rate FiO2 07/26/24 10:01 69 131/59 07/26/24 09:00 97.5 16 94 97.5 07/25/24 20:00 Nasal Cannula* 2 28 Total Intake and Output 07/25/24 07/25/24 07/26/24 15:00 23:00 07:00 Intake Total 700 ml 750 ml Output Total 2000 ml Balance -1300 ml 750 ml medications Current Medications Medications Dose Ordered Sig/Fernando Route Start Time Stop Time Status Last Admin Dose Admin Furosemide 20 mg DAILY PO 07/24/24 10:00 07/26/24 10:00 20 MG Levothyroxine Sodium 50 mcg QAM PO 07/24/24 07:00 07/26/24 06:16 50 MCG Sennosides 8.6 mg DAILY PO 07/24/24 10:00 07/26/24 10:00 8.6 MG Atorvastatin Calcium 40 mg HS PO 07/24/24 22:00 07/25/24 22:09 40 MG Cholecalciferol 2,000 unit DAILY PO 07/24/24 10:00 07/26/24 10:01 2,000 UNIT Acetaminophen 650 mg Q4HP PRN PO 07/24/24 03:00 07/26/24 12:40 650 MG Pantoprazole Sodium 40 mg BID IV 07/24/24 22:00 07/26/24 10:01 40 MG Sucralfate 1 gm TID@0600,1130,2200 PO 07/24/24 11:30 07/26/24 12:40 1 GM Patient Own Medication 1 tab DAILY PO 07/24/24 09:15 UNV Warfarin Sodium RX PROTOCOL PER PHARMACY PO 07/24/24 09:30 Propranolol HCl 40 mg BID PO 07/24/24 10:45 07/26/24 10:01 40 MG Lactulose 30 ml DAILYPRN PRN PO 07/25/24 22:00 07/25/24 22:15 30 ML Melatonin 5 mg HS PRN PO 07/25/24 22:00 Cancel Examination Patient lying in bed, in no acute distress General: Obese, afebrile, palor, mucosae are moist Cardiovascular: Regular S1 and S2. No murmurs, gallops or rubs. No JVD elevation. No pedal edema Respiratory: Normal B/L air entry on room air. Clear lung sounds on auscultation Abdomen: Soft, nontender, nondistended, normoactive bowel sounds, no rebound tenderness, no organomegaly, no masses Genitourinary: Deferred MSK/skin: Mobilizes 4 limbs. Skin is dry and warm Neurological: No motor, no sensitive deficits, normal speech. Pupils are isocoric and reactive. Psych/Mental Status: A/Ox3 laboratory and microbiology Laboratory Tests 07/26/24 07:41 07/25/24 06:26 Test 07/25/24 06:26 Range/Units Serum Glucose 90 74-106 mg/dL Labs and/or images reviewed: Labs reviewed by me, Image(s) reviewed by me Problem List/Assessment/Plan Problem List/Assessment/Plan # Epigastric pain # Large hiatal hernia # GERD & acute gastritis # Cholelithiasis - Protonix IV and Carafate p.o. q.i.d. - surgeon recommended outpatient follow up - CT ABD/pelvis showed large hiatal hernia measuring 24 x 13 cm, containing mesenteric fat, stomach, and bowel, with compression of the lower lung eagle bilaterally. along with small gallstones - GI consultation pending # Un controlled HTN possible urgency # Hx of Afib with a secondary hypercoagulable state # Hx of DVT- s/p IVC filter - continuously monitoring blood pressure - continue propranolol 40 mg b.i.d. - on warfarin # Chronic systolic versus diastolic CHF - continue propranolol and Lasix - ordered echocardiogram - consulted Dr. Panchal # Anterior spondylolisthesis L4L5- CT abdomen/ pelvis. Conservative management for now. Outpatient follow up with spine surgeon. # Hypothyroidism, status post partial thyroidectomy due to thyroid nodule - continue levothyroxine # Arthritis - no active issues # Hyperlipidemia - on statin # Asthma - not in exacerbation # History of polio - paraplegic; no active issues Protonix Warfarin Goals of care discussed with the patient for 20 minutes: Full code status Case discussed with Dr. Victoria, patient and nurse, pending GI eval Plan discussed with: Patient Dietary Evaluation Review Recommendations by RD: Dietary education by RD, Protein Supplementation Comments: 1) Initiate Pro-Stat @ 30 mL qd 2) Initiate multivitamin @ 1 tb qd 3) Advance to cardiac diet when medicaly feasible, pending PHARMACOLOGIST approval 4) Refer to outpatient RD for weight management 5) Follow up with cardiology and gastroenterology 6) Continue to monitor I&O, labs, and skin integrity Expected Outcomes/Goals: 1) appetite and labs to improve 2) diet to advance 3) wound to improve 4) f/u in 3-5 days ELIA CORREA RESIDENT Jul 26, 2024 13:21
--- NOTE | 2024-07-26 14:20 | DVHPN2 ---
Progress Note - Dictate Date Seen: Jul 25, 2024 Has the PT tested + for MRSA If YES, has PT been informed?: No Medical Necessity Reason Pt with a Central, PICC or Fol: No Subjective PT WELL KNOWN TO ME HX OF CHRONIC DVT LE EDEMA LYMPHEDEMA AFIB HYPERCOAGULABLE STATE PE IVC FILTER HTN DIASTOLIC DYSFUNCTION ASTHMA RESTRICTED MOBILITY NOW WITH SS COMPLEX OF ABD PAIN CT OF ABD LARGE HIATAL HERNIA WITH COMPRESSION OF LUNG TISSUE CHOLELITHIASIS vital signs Vital Sign Date Time Temp Pulse Resp B/P (MAP) Pulse Ox O2 Delivery O2 Flow Rate FiO2 07/26/24 10:01 69 131/59 07/26/24 09:00 97.5 16 94 97.5 07/25/24 20:00 Nasal Cannula* 2 28 Total Intake and Output 07/25/24 07/25/24 07/26/24 15:00 23:00 07:00 Intake Total 700 ml 750 ml Output Total 2000 ml Balance -1300 ml 750 ml medications Current Medications Medications Dose Ordered Sig/Fernando Route Start Time Stop Time Status Last Admin Dose Admin Furosemide 20 mg DAILY PO 07/24/24 10:00 07/26/24 10:00 20 MG Levothyroxine Sodium 50 mcg QAM PO 07/24/24 07:00 07/26/24 06:16 50 MCG Sennosides 8.6 mg DAILY PO 07/24/24 10:00 07/26/24 10:00 8.6 MG Atorvastatin Calcium 40 mg HS PO 07/24/24 22:00 07/25/24 22:09 40 MG Cholecalciferol 2,000 unit DAILY PO 07/24/24 10:00 07/26/24 10:01 2,000 UNIT Acetaminophen 650 mg Q4HP PRN PO 07/24/24 03:00 07/26/24 12:40 650 MG Pantoprazole Sodium 40 mg BID IV 07/24/24 22:00 07/26/24 10:01 40 MG Sucralfate 1 gm TID@0600,1130,2200 PO 07/24/24 11:30 07/26/24 12:40 1 GM Patient Own Medication 1 tab DAILY PO 07/24/24 09:15 UNV Warfarin Sodium RX PROTOCOL PER PHARMACY PO 07/24/24 09:30 Propranolol HCl 40 mg BID PO 07/24/24 10:45 07/26/24 10:01 40 MG Lactulose 30 ml DAILYPRN PRN PO 07/25/24 22:00 07/25/24 22:15 30 ML Melatonin 5 mg HS PRN PO 07/25/24 22:00 Cancel laboratory and microbiology Laboratory Tests 07/26/24 07:41 07/25/24 06:26 Test 07/25/24 06:26 Range/Units Serum Glucose 90 74-106 mg/dL Problem List HX OF CHRONIC DVT LE EDEMA LYMPHEDEMA AFIB HYPERCOAGULABLE STATE PE IVC FILTER HTN DIASTOLIC DYSFUNCTION ASTHMA RESTRICTED MOBILITY NOW WITH SS COMPLEX OF ABD PAIN CT OF ABD LARGE HIATAL HERNIA WITH COMPRESSION OF LUNG TISSUE CHOLELITHIASIS Assessment/Plan CONT ANTI COAGULATION NEEDS CORRECTION OF HH ABX Dietary Evaluation Review Recommendations by RD: Dietary education by RD, Protein Supplementation Comments: 1) Initiate Pro-Stat @ 30 mL qd 2) Initiate multivitamin @ 1 tb qd 3) Advance to cardiac diet when medicaly feasible, pending DRIVER EDUCATION INSTRUCTOR approval 4) Refer to outpatient RD for weight management 5) Follow up with cardiology and gastroenterology 6) Continue to monitor I&O, labs, and skin integrity Expected Outcomes/Goals: 1) appetite and labs to improve 2) diet to advance 3) wound to improve 4) f/u in 3-5 days Plan discussed with: Patient AI CORBIN MD Jul 26, 2024 14:20
--- NOTE | 2024-07-26 17:40 | DVH ---
Indication: spinal stenosis Technique: CT axial images of the cervical spine are obtained without contrast. Coronal and sagittal reformats were obtained. Radiation Dose Information: CTDI volume is 24.98 mGy. Dose-length product is 667.61 mGy*cm Comparison: None FINDINGS: The cervical vertebral body heights are maintained. 4 mm anterolisthesis C3 upon C4.. 4 mm anterolis thesis of C4 upon C5 There is severe multilevel disc space narrowing. No prevertebral edema. Facet ar ticulations demonstrates severe facet hypertrophic changes. . The atlantooccipital, atlantoaxial annabel culations are intact. Levocurvature at the cervical/thoracic junction. Hyperdense opacification of the sphenoid and right maxillary sinus. Large left maxillary sinus mucosa l retention cyst/ polyp. Left thyroidectomy. IMPRESSION: 1. Severe cervical degenerative disc disease. 2. Severe facet hypertrophic changes. 3. Hyperdense opacification of the sphenoid, maxillary sinuses which can be seen with inspissated se cretions, fungal etiologies.
[2024-07-27] VITALS (10 sets, daily range): BP systolic 105–139; BP diastolic 51–82; PULSE 64–82; RESP 16–20; TEMP 97–98.1; O2SAT 92–99
[2024-07-27 06:25] LABS: Anion Gap 6 (5-15); Carbon Dioxide 31 mmol/L (20-31); Chloride 104 mmol/L (98-107); Potassium 3.8 mmol/L (3.5-5.1); Sodium 141 mmol/L (136-145)
[2024-07-27 06:26] LABS: Calcium 9.5 mg/dL (8.7-10.4)
[2024-07-27 06:30] LABS: Glucose 86 mg/dL (74-106)
[2024-07-27 06:31] LABS: BUN/Creatinine Ratio 21.7 (10.0-20.0); Blood Urea Nitrogen 13 mg/dL (9-23)
[2024-07-27] MEDS: ALBUTEROL SULF 2.5 MG/0.5ML(0.5%) NEB SOLN NEB ONE (11:17)
[2024-07-27 11:57] LABS: INR 1.93 (0.9-1.15); Partial Thromboplastin Time 35.4 SEC (24.5-34.5); Prothrombin Time 19.2 sec (9.3-11.8)
--- NOTE | 2024-07-27 16:16 | DVHDSRES ---
Discharge Summary Date of Admission Resident Creating Document: ELIA CORREA RESIDENT July 23, 2024 at 23:57 Date of Discharge: Jul 27, 2024 Labs/Diagnostic Data: Laboratory Results Test 07/27/24 11:16 07/27/24 05:59 07/26/24 07:41 07/24/24 06:23 Prothrombin Time 19.2 sec (9.3-11.8) Prothrombin Time INR 1.93 (0.9-1.15) Activated Partial Thromboplast Time 35.4 SEC (24.5-34.5) Sodium Level 141 mmol/L (136-145) Potassium Level 3.8 mmol/L (3.5-5.1) Chloride Level 104 mmol/L (98-107) Carbon Dioxide Level 31 mmol/L (20-31) Anion Gap 6 (5-15) Blood Urea Nitrogen 13 mg/dL (9-23) Creatinine 0.60 mg/dL (0.550-1.02) Glomerular Filtration Rate Calc 88 mL/min (>90) BUN/Creatinine Ratio 21.7 (10.0-20.0) Serum Glucose 86 mg/dL (74-106) Calcium Level 9.5 mg/dL (8.7-10.4) White Blood Count 7.3 10^3/uL (4.4-10.8) Red Blood Count 4.90 10^6/uL (4.0-5.20) Hemoglobin 14.9 g/dL (12.2-16.2) Hematocrit 44.9 % (36.0-46.0) Mean Corpuscular Volume 91.7 fL (80.0-100.0) Mean Corpuscular Hemoglobin 30.4 pg (28.0-32.0) Mean Corpuscular Hemoglobin Concent 33.2 g/dL (32.0-36.0) Red Cell Distribution Width 13.0 % (11.8-14.3) Platelet Count 211 10^3/uL (140-450) Mean Platelet Volume 8.6 fL (6.9-10.8) Neutrophils (%) (Auto) 52.1 % (37.0-80.0) Lymphocytes (%) (Auto) 33.7 % (10.0-50.0) Monocytes (%) (Auto) 11.2 % (0.0-12.0) Eosinophils (%) (Auto) 2.5 % (0.0-7.0) Basophils (%) (Auto) 0.5 % (0.0-2.0) Neutrophils # (Auto) 3.8 10 ^3/uL (1.6-8.6) Lymphocytes # (Auto) 2.5 10 ^3/uL (0.4-5.4) Monocytes # (Auto) 0.8 10 ^3/uL (0-1.3) Eosinophils # (Auto) 0.2 10 ^3/uL (0-0.8) Basophils # (Auto) 0 10 ^3/uL (0-0.2) Nucleated Red Blood Cells 0.0 % Hemoglobin A1c 5.4 % A1C (<5.7) Vitamin B12 Level 585 pg/mL (211-911) Vitamin D 25-Hydroxy 58.3 ng/mL (30.0-100) Folic Acid 17.51 ng/mL (>5.38) Test 07/23/24 20:40 07/23/24 19:59 07/23/24 19:55 Troponin I High Sensitivity < 3 ng/L (</=34) POC Glucose 103 mg/dl (70-106) Lactic Acid Level 1.1 mmol/L (0.4-2.0) Total Bilirubin 0.4 mg/dL (0.2-1.0) Aspartate Amino Transferase (AST) 16 U/L (13-40) Alanine Aminotransferase (ALT) 12 U/L (7-40) Alkaline Phosphatase 93 U/L (46-116) B-Type Natriuretic Peptide 35.92 pg/mL (0-100) Total Protein 5.9 g/dL (5.7-8.2) Albumin 4.2 g/dL (3.2-4.8) Lipase 50 U/L (12-53) Other Laboratory Tests 07/27/24 05:59 07/26/24 07:41 Brief Hx & Hospital Course: Ruby Mcdaniel is an 84-year-old female with a complex medical history including Afib & DVT Rt leg on Coumadin, with an IVC filter, HTN, thyroid disease, HLD, asthma, arthritis, and CHF, who presented with complaints of abdominal pain. The patient reported a history of a mild hiatal hernia diagnosed in 2010, which was noted to have enlarged significantly during a hospitalization three years ago, at which time surgical intervention was considered but ultimately deferred. The current episode of abdominal pain began yesterday, described as crampy, sharp, sudden in onset, and rated 9/10 in intensity. The pain is aggravated by movement. The patient also endorsed nausea without vomiting. She reported chronic shortness of breath for over a year and chronic bilateral leg swelling attributed to CHF, under the care of Dr. Panchal (automotive quality engineer). Additional symptoms include a chronic cough with scant mucus production and morning- predominant reflux symptoms. Initial laboratory workup was negative for troponin I, BNP, and lipase. A CT scan of the abdomen and pelvis revealed a large hiatal hernia measuring 24 cm transversely and 13 cm cranio-caudally, containing mesenteric fat, stomach, and bowel, with compression of the lower lung eagle bilaterally. Additional findings included small gallstones, a TrapEase IVC filter located inferior to the renal veins, and 23 mm anterior spondylolisthesis at L4L5. During hospital workup, CT abdomen showed large hiatal hernia measuring 24 x 13 cm, containing mesenteric fat, stomach, and bowel, with compression of the lower lung eagle bilaterally. along with small gallstones. Patient was started on Protonix and Carafate. Surgeon was consulted, recommended elective outpatient surgery at tertiary center. GI was consulted, recommended outpatient follow up. Patient refused surgical management for the hiatal hernia at this time. She would like to go with medical management given her age and comorbidities. Became resumed home medication warfarin and propranolol [address] cervical spine was ordered given neck pain, showed severe cervical degenerative disc disease and severe facet hypertrophic changes. 07/27/2024-patient is hemodynamically stable, vitally stable, therefore she has been discharged home with the recommendations to follow up with surgeon as outpatient at higher level of care, follow up with GI as outpatient. Patient agreed to discharge planning. Consults/Reason for consult Surgeon consulted for hiatal hernia GI consulted for hiatal hernia medical management Operations or Procedures ORDERING PHYSICIAN: MIRLANDE GONZALEZ DO PROCEDURE(s): ABPL - CT AB PEL WO CON-NO ORAL OR IV REASON: epig pain n/ ORDER NUMBER(s): [id number], ACCESSION NUMBER(s): [id number] Exam: CT CT AB PEL WO CON-NO ORAL OR IV History: epig pain n/ Comparison Study: [facility] on DOS: 02/11/22 TECHNIQUE: Multidetector CT of the abdomen was performed from lung bases to pubic symphysis. Imaging was performed without IV contrast. Axial, coronal and sagittal multiplanar reformats were obtained from the axial data set by the technologist. Radiation Dose Information: CT Dose: CTDI volume is 23.79 mGy. Dose-length product is 1356.94 mGy*cm FINDINGS: Evaluation of solid organs is limited due to lack of intravenous contrast use. Findings: Lung Bases: No acute or significant lung base finding. Normal heart size. No pleural or pericardial effusion. Liver: The liver is normal in size. No focal lesions. Gallbladder and Biliary Tree: Small Calcified gallstones. Spleen: Unremarkable Pancreas: The pancreas is grossly normal in appearance. Adrenal Glands: Unremarkable Kidneys: Kidneys are grossly normal without calculi or hydronephrosis. Bladder: Grossly unremarkable for degree of distention. Bowel: Very large hiatal hernia measuring 23 cm in transverse dimension and 13 cm cranial caudal dimension. It contains mesenteric fat stomach and bowel creating atelectasis in both the right and left lower lung eagle.. Small bowel and colon are normal in caliber and distribution. The appendix is not visualized; however, no secondary findings of acute appendicitis identified. Ascites: Absent Lymphadenopathy: No mesenteric, retroperitoneal or periportal lymphadenopathy. Abdominal Wall and Mesentery: Unremarkable. Vasculature: The visualized abdominal aorta is normal in size and caliber. Filter in the inferior vena cava. Evaluation of abdominal and pelvic vessels is limited due to lack of intravenous contrast. Pelvic Organs: Unremarkable Musculoskeletal: No aggressive focal bony lesions, acute fractures or dislocation. 2-3 mm anterior spondylolisthesis L4-L5. Soft tissues: Unremarkable IMPRESSION: 1. Large hiatal hernia measuring 24 cm in transverse dimension and 13 cm in cranial caudal dimension. The hernia contains mesenteric fat stomach and bowel. It is compressing the lower lung eagle bilaterally 2. Small gallstones. 3. Filter noted in the inferior vena cava. This is a TrapEase filter and is inferior to the renal veins. 4. 2-3 mm anterior spondylolisthesis L4-5. Radiation optimization: All CT scans at this facility use at least one of these dose optimization techniques: automated exposure control mA and/or kV adjustment per patient size (includes targeted exams where dose is matched to clinical indication) or iterative reconstruction. ATED BY: DUY HAYWOOD Jr., DO DICTATED DATE/TIME: 07/23/242127 SIGNED BY: DUY HAYWOOD Jr., SIGNED DATE/TIME: 07/23/242127 CC: Condition at Discharge: Stable Final Diagnosis/Problems List Epigastric pain secondary to Large hiatal hernia GERD & acute gastritis Cholelithiasis Uncontrolled hypertension History of atrial fibrillation with secondary hypercoagulable state Chronic congestive heart failure no exacerbation Cervical spine degenerative disc disease Anterior spondylolisthesis L4L5- Hypothyroidism Arthritis Dyslipidemia Asthma-controlled . history of polio Discharge Disposition: Home Discharge Instruct/Medications Diet: See Comment Diet comment: Soft diet, avoid spicy food Activity: Light activity Follow Up/Referral: Follow up with GI as outpatient Follow up with PCP within 7 days as outpatient Follow up with surgery at higher level of care as outpatient Medications: Per EMR Discharge Statement: "Patient was advised to return to the ER or call 911 if any headaches, dizziness, shortness of breath, chest pain, abdominal pain, bleeding, fevers, or worsening of medical condition. Patient was counseled about treatment plan, medications, possible side effects, patientverbalized understanding. All questions were answered to the best of my ability. This discharge took greater then 30 minutes in planning, reviewing documentation, counseling the patient, and discussing with other team members." ASSESSMENT ASSESSMENT Assessment # Epigastric pain secondary to Large hiatal hernia # GERD & acute gastritis # Cholelithiasis Date of Service: Jul 27, 2024 Billing Provider: KATHERINE ROBERT MD Common Visit Codes: 28701-KDA/OBS DISCH DAY >30min ELIA CORREA RESIDENT Jul 27, 2024 16:16 KATHERINE ROBERT MD Jul 28, 2024 08:58
[2024-07-27] MEDS ORDERED: SUCR1TAB PO (16:18)
[2024-07-27] MEDS ORDERED: PANT40T PO (16:18)
--- NOTE | 2024-07-27 16:53 | DVHPNRES ---
Progress Note Date Seen: Jul 27, 2024 Resident Creating Document: ELIA CORREA RESIDENT Has the PT tested + for MRSA If YES, has PT been informed?: No Medical Necessity Reason Pt with a Central, PICC or Fol: No Subjective Review of Systems Ruby Mcdaniel is an 84-year-old female with a complex medical history including Afib & DVT Rt leg on Coumadin, with an IVC filter, HTN, thyroid disease, HLD, asthma, arthritis, and CHF, who presented with complaints of abdominal pain. The patient reported a history of a mild hiatal hernia diagnosed in 2010, which was noted to have enlarged significantly during a hospitalization three years ago, at which time surgical intervention was considered but ultimately deferred. The current episode of abdominal pain began yesterday, described as crampy, sharp, sudden in onset, and rated 9/10 in intensity. The pain is aggravated by movement. The patient also endorsed nausea without vomiting. She reported chronic shortness of breath for over a year and chronic bilateral leg swelling attributed to CHF, under the care of Dr. Panchal (arboriculture instructor). Additional symptoms include a chronic cough with scant mucus production and morning- predominant reflux symptoms. Initial laboratory workup was negative for troponin I, BNP, and lipase. A CT scan of the abdomen and pelvis revealed a large hiatal hernia measuring 24 cm transversely and 13 cm cranio-caudally, containing mesenteric fat, stomach, and bowel, with compression of the lower lung eagle bilaterally. Additional findings included small gallstones, a TrapEase IVC filter located inferior to the renal veins, and 23 mm anterior spondylolisthesis at L4L5. 07/26-Patient seen and examined at the bedside. Reports intermittent pain, epigastric. No acute distress. GI consultation pending. 07/27-patient seen and examined at the bedside. Reports feeling better. GI consultation completed, patient scheduled for EGD tomorrow. NPO after midnight. Objective vital signs Vital Sign Date Time Temp Pulse Resp B/P (MAP) Pulse Ox O2 Delivery O2 Flow Rate FiO2 07/27/24 12:44 98.1 67 20 126/69 (88) 96 98.1 07/27/24 11:17 Room Air* 0 21 Total Intake and Output 07/26/24 07/26/24 07/27/24 15:00 23:00 07:00 Intake Total 1000 ml 300 ml Balance 1000 ml 300 ml medications Current Medications Medications Dose Ordered Sig/Fernando Route Start Time Stop Time Status Last Admin Dose Admin Furosemide 20 mg DAILY PO 07/24/24 10:00 07/27/24 09:55 20 MG Levothyroxine Sodium 50 mcg QAM PO 07/24/24 07:00 07/27/24 06:26 50 MCG Sennosides 8.6 mg DAILY PO 07/24/24 10:00 07/26/24 10:00 8.6 MG Atorvastatin Calcium 40 mg HS PO 07/24/24 22:00 07/26/24 22:02 40 MG Cholecalciferol 2,000 unit DAILY PO 07/24/24 10:00 07/27/24 09:54 2,000 UNIT Acetaminophen 650 mg Q4HP PRN PO 07/24/24 03:00 07/27/24 06:17 650 MG Pantoprazole Sodium 40 mg BID IV 07/24/24 22:00 07/26/24 22:03 40 MG Sucralfate 1 gm TID@0600,1130,2200 PO 07/24/24 11:30 07/27/24 06:13 1 GM Patient Own Medication 1 tab DAILY PO 07/24/24 09:15 UNV Warfarin Sodium RX PROTOCOL PER PHARMACY PO 07/24/24 09:30 Propranolol HCl 40 mg BID PO 07/24/24 10:45 07/27/24 09:54 40 MG Lactulose 30 ml DAILYPRN PRN PO 07/25/24 22:00 07/26/24 22:03 30 ML Melatonin 5 mg HS PRN PO 07/25/24 22:00 Cancel Examination Patient lying in bed, in no acute distress General: Obese, afebrile, palor, mucosae are moist Cardiovascular: Regular S1 and S2. No murmurs, gallops or rubs. No JVD elevation. No pedal edema Respiratory: Normal B/L air entry on room air. Clear lung sounds on auscultation Abdomen: Soft, nontender, nondistended, normoactive bowel sounds, no rebound tenderness, no organomegaly, no masses Genitourinary: Deferred MSK/skin: Mobilizes 4 limbs. Skin is dry and warm Neurological: No motor, no sensitive deficits, normal speech. Pupils are isocoric and reactive. Psych/Mental Status: A/Ox3 laboratory and microbiology Laboratory Tests 07/27/24 05:59 07/26/24 07:41 Test 07/27/24 05:59 Range/Units Serum Glucose 86 74-106 mg/dL Labs and/or images reviewed: Labs reviewed by me, Image(s) reviewed by me Problem List/Assessment/Plan Problem List/Assessment/Plan # Epigastric pain # Large hiatal hernia # GERD & acute gastritis # Cholelithiasis - Protonix IV and Carafate p.o. q.i.d. - surgeon recommended outpatient follow up - CT ABD/pelvis showed large hiatal hernia measuring 24 x 13 cm, containing mesenteric fat, stomach, and bowel, with compression of the lower lung eagle bilaterally. along with small gallstones - GI consultation -recommended upper EGD, scheduled for 07/28. NPO after midnight # Un controlled HTN possible urgency # Hx of Afib with a secondary hypercoagulable state # Hx of DVT- s/p IVC filter - continuously monitoring blood pressure - continue propranolol 40 mg b.i.d. - on warfarin # Chronic systolic versus diastolic CHF - continue propranolol and Lasix - ordered echocardiogram - consulted Dr. Panchal # Anterior spondylolisthesis L4L5- CT abdomen/ pelvis. Conservative management for now. Outpatient follow up with spine surgeon. # Hypothyroidism, status post partial thyroidectomy due to thyroid nodule - continue levothyroxine # Arthritis - no active issues # Hyperlipidemia - on statin # Asthma - not in exacerbation # History of polio - paraplegic; no active issues Protonix Warfarin Goals of care discussed with the patient for 20 minutes: Full code status Case discussed with Dr. Victoria, patient and nurse, pending upper EGD. NPO after midnight Plan discussed with: Patient My Orders My Orders Orders - ELIA CORREA Procedure Category Date Status Time * Glass Inspector CONS 07/27/24 Transmitted Consult Dietary Evaluation Review Recommendations by RD: Dietary education by RD, Protein Supplementation Comments: 1) Initiate Pro-Stat @ 30 mL qd 2) Initiate multivitamin @ 1 tb qd 3) Advance to cardiac diet when medicaly feasible, pending AUTOMOTIVE SERVICE ADVISOR approval 4) Refer to outpatient RD for weight management 5) Follow up with cardiology and gastroenterology 6) Continue to monitor I&O, labs, and skin integrity Expected Outcomes/Goals: 1) appetite and labs to improve 2) diet to advance 3) wound to improve 4) f/u in 3-5 days ELIA CORREA Jul 27, 2024 16:53
[2024-07-27] MEDS ORDERED: WARFARIN SODIUM 1 MG TAB PO ONE (17:00)
--- NOTE | 2024-07-27 20:19 | DVHINCON2 ---
Date of service: Jul 27, 2024 Referring Physician Elia Savage Reason for Consultation Large hiatal hernia History of Present Illness Patient is 84 years old male with past medical history of atrial fibrillation on Coumadin, DVT in the right leg on IVC filter, hypertension, thyroid disease, hyperlipidemia, asthma, arthritis came with a complaint of abdominal pain. As per patient patient has been having intractable abdominal pain began yesterday, crampy, sharp, 9/10, sudden onset, aggravated with movement. Patient also endorsed nausea but no vomiting. Patient reported she has chronic shortness of breath for over a year and also chronic leg swelling. Patient also reported c hronic cough,scanty mucus production especially in the morning. IVC filter was placed in 2010 as per patient. Initial lab workup was negative for troponin I and BNP and lipase. CT abdomen and pelvis revealed-1. Large hiatal hernia measuring 24 cm in transverse dimension and 13 cm in cranial caudal dimension. The hernia contains mesenteric fat stomach and bowel. It is compressing the lower lung eagle bilaterally, Small gallstones. Filter noted in the inferior vena cava. This is a TrapEase filter and is inferior to the renal veins. 2-3 mm anterior spondylolisthesis L4-5. Patient has had multiple previous endoscopies with the last one was over 10 years ago Patient does not want to do the complex surgery that could be required to fix the hiatal hernia However she would like to get an endoscopic evaluation LAST EGD DR GILL Operative Report DATE OF OPERATION: 02/01/13 PROCEDURE: Upper Endoscopy. PREOPERATIVE INDICATION: The patient is a 72 -year-old female undergoing endoscopy for dysphagia POSTOPERATIVE DIAGNOSES: 1. narrowed GEJ at 30 cm 2. possible gastric rotation vs hernia 3. tortuous esophagus PROCEDURE PERFORMED BY: Perry Gill Past Medical History atrial fibrillation on Coumadin, DVT in the right leg on IVC filter, hypertension, thyroid disease, hyperlipidemia, asthma, arthritis Past Surgical History Past Surgical History Thyroidectomy due to thyroid nodule, post biopsy, hemorrhoidectomy, hysterectomy IVC filter placement Multiple previous endoscopies Family History: Family history: Arthritis Family history: Cardiovascular disease G8 FATHER, Onset:60 years & older Stroke G8 FATHER, Onset:60 years & older Social History Past Social History Lives alone, use wheelchair, denies smoking/alcoholism/drug abuse Allergies: Coded Allergies: Levofloxacin (Verified Allergy, Mild, ITCHING TO SITE OF IV INSERTION WITH REDNESS, 10/10/13) Codeine (Verified Allergy, Unknown, 07/13/18) Hydromorphone (Unverified Allergy, Unknown, 07/13/18) Iodine (Verified Allergy, Unknown, 07/13/18) FROM IODINE CONTRAST Penicillins (Verified Allergy, Unknown, 07/13/18) Propoxyphene (Verified Allergy, Unknown, 09/05/13) Home Meds Active Scripts Sucralfate (Sucralfate) 1 Gm Tab, 1 GM PO QID for 30 Days, #120 TAB 0 Refills Prov:SUNNY,ELIA RESIDENT 07/27/24 Pantoprazole Sodium Sesquihydr (Pantoprazole Sodium) 40 Mg Tab, 40 MG PO BID for 30 Days, #60 TAB 0 Refills Prov:SUNNY,ELIA RESIDENT 07/27/24 Senna (Senna Laxative) 8.6 Mg Tab, 8.6 MG PO DAILY, #5 TAB Prov:CARA DURAN MD 04/23/21 Reported Medications Cholecalciferol (VITAMIN D3) 2,000 Unit Tab, 1 TAB PO DAILY, #30 TAB 5 Refills 07/13/18 Furosemide (Lasix) 20 Mg Tb, 1 TAB PO DAILY, #90 TAB 1 Refill 07/13/18 Warfarin Sodium (Coumadin) 3 Mg Tab, 1 TAB PO DAILY, #30 TAB 5 Refills 07/13/18 Atorvastatin Calcium (ATORVASTATIN CALCIUM) 40 Mg Tab, 1 TAB PO QPM, #90 TAB 3 Refills 07/13/18 Omeprazole (Omeprazole) 20 Mg Cap, 40 MG PO QAM, CAP 07/13/18 Propranolol Hcl (Inderal La) 60 Mg Cap, 40 MG PO BID, CAP 10/09/13 Levothyroxine Sodium (Levothyroxine Sodium) 50 Mcg Tab, 50 MCG PO QAM 11/28/12 Vital Signs Vital Signs Date Time Temp Pulse Resp B/P (MAP) Pulse Ox O2 Delivery O2 Flow Rate FiO2 07/27/24 17:00 97.8 73 18 105/82 (90) 98 97.8 07/27/24 11:17 Room Air* 0 21 Physical Exam Patient lying in bed, in no acute distress General: Obese, afebrile, palor, mucosae are moist Cardiovascular: Regular S1 and S2. No murmurs, gallops or rubs. No JVD elevation. No pedal edema Respiratory: Normal B/L air entry on room air. Clear lung sounds on auscultation Abdomen: Soft, nontender, nondistended, normoactive bowel sounds, no rebound tenderness, no organomegaly, no masses Genitourinary: Deferred MSK/skin: Mobilizes 4 limbs. Skin is dry and warm Neurological: No motor, no sensitive deficits, normal speech. Pupils are isocoric and reactive. Psych/Mental Status: A/Ox3 Labs/Diagnostic Data Labs Test 07/27/24 11:16 07/27/24 05:59 07/26/24 07:41 07/24/24 06:23 Range/Units Prothrombin Time 19.2 H 9.3-11.8 sec Prothrombin Time INR 1.93 H 0.9-1.15 Activated Partial Thromboplast Time 35.4 H 24.5-34.5 SEC Sodium Level 141 136-145 mmol/L Potassium Level 3.8 3.5-5.1 mmol/L Chloride Level 104 98-107 mmol/L Carbon Dioxide Level 31 20-31 mmol/L Anion Gap 6 5-15 Blood Urea Nitrogen 13 9-23 mg/dL Creatinine 0.60 0.550-1.02 mg/dL Glomerular Filtration Rate Calc 88 >90 mL/min BUN/Creatinine Ratio 21.7 H 10.0-20.0 Serum Glucose 86 74-106 mg/dL Calcium Level 9.5 8.7-10.4 mg/dL White Blood Count 7.3 4.4-10.8 10^3/uL Red Blood Count 4.90 4.0-5.20 10^6/uL Hemoglobin 14.9 12.2-16.2 g/dL Hematocrit 44.9 36.0-46.0 % Mean Corpuscular Volume 91.7 80.0-100.0 fL Mean Corpuscular Hemoglobin 30.4 28.0-32.0 pg Mean Corpuscular Hemoglobin Concent 33.2 32.0-36.0 g/dL Red Cell Distribution Width 13.0 11.8-14.3 % Platelet Count 211 140-450 10^3/uL Mean Platelet Volume 8.6 6.9-10.8 fL Neutrophils (%) (Auto) 52.1 37.0-80.0 % Lymphocytes (%) (Auto) 33.7 10.0-50.0 % Monocytes (%) (Auto) 11.2 0.0-12.0 % Eosinophils (%) (Auto) 2.5 0.0-7.0 % Basophils (%) (Auto) 0.5 0.0-2.0 % Neutrophils # (Auto) 3.8 1.6-8.6 10 ^3/uL Lymphocytes # (Auto) 2.5 0.4-5.4 10 ^3/uL Monocytes # (Auto) 0.8 0-1.3 10 ^3/uL Eosinophils # (Auto) 0.2 0-0.8 10 ^3/uL Basophils # (Auto) 0 0-0.2 10 ^3/uL Nucleated Red Blood Cells 0.0 % Hemoglobin A1c 5.4 <5.7 % A1C Vitamin B12 Level 585 211-911 pg/mL Vitamin D 25-Hydroxy 58.3 30.0-100 ng/mL Folic Acid 17.51 >5.38 ng/mL Test 07/23/24 20:40 07/23/24 19:59 07/23/24 19:55 Range/Units Troponin I High Sensitivity < 3 L </=34 ng/L POC Glucose 103 70-106 mg/dl Lactic Acid Level 1.1 0.4-2.0 mmol/L Total Bilirubin 0.4 0.2-1.0 mg/dL Aspartate Amino Transferase (AST) 16 13-40 U/L Alanine Aminotransferase (ALT) 12 7-40 U/L Alkaline Phosphatase 93 46-116 U/L B-Type Natriuretic Peptide 35.92 0-100 pg/mL Total Protein 5.9 5.7-8.2 g/dL Albumin 4.2 3.2-4.8 g/dL Lipase 50 12-53 U/L Problems(with codes): (1) CONGESTIVE HEART FAILURE NOS (2) SWELLING OF LIMB (3) ATRIAL FLUTTER (4) Epigastric pain (5) Hiatal hernia (6) Lumbar strain (7) Benign hypertension (8) URIN TRACT INFECTION NOS Plan/Recommendation Plan Hold Coumadin Continue Protonix and Carafate Dietary changes were discussed including trying to stick with a full liquid or soft diet NPO after midnight, patient tentatively scheduled for an endoscopy on 07/28/2024 as per her request Plan discussed with: Patient, Other (Nurse and Dr Savage) MATIAS LIMA MD Jul 27, 2024 20:19
[2024-07-28] VITALS (11 sets, daily range): BP systolic 100–173; BP diastolic 57–85; PULSE 68–95; RESP 14–19; TEMP 97.4–98; O2SAT 69–99
[2024-07-28 06:25] LABS: Hematocrit 43.1 % (36.0-46.0); Hemoglobin 14.3 g/dL (12.2-16.2)
[2024-07-28 06:29] LABS: Calcium 9.5 mg/dL (8.7-10.4); Chloride 103 mmol/L (98-107); Potassium 3.8 mmol/L (3.5-5.1); Sodium 141 mmol/L (136-145)
[2024-07-28 06:30] LABS: Anion Gap 9 (5-15); Carbon Dioxide 29 mmol/L (20-31)
[2024-07-28 06:35] LABS: Blood Urea Nitrogen 13 mg/dL (9-23); Glucose 86 mg/dL (74-106)
[2024-07-28] MEDS ORDERED: SODIUM CHLORIDE LOCK 10 ML ONE (09:27)
[2024-07-28] MEDS: LIDOCAINE VISCOUS 2% 15ML UD ONE (12:24)
[2024-07-28] MEDS: diphenhdrAMINE HCL 50 MG/1 ML VL ONE (12:26)
[2024-07-28] MEDS: fentaNYL CITRATE 100 MCG/2 ML VL ONE (12:26)
[2024-07-28] MEDS: MIDAZOLAM HCL 5 MG/ML-1ML VIAL ONE (12:26)
--- NOTE | 2024-07-28 12:42 | DVHPN2 ---
Progress Note - Dictate Date Seen: Jul 27, 2024 Has the PT tested + for MRSA If YES, has PT been informed?: No Medical Necessity Reason Pt with a Central, PICC or Fol: No Subjective PT WELL KNOWN TO ME HX OF CHRONIC DVT LE EDEMA LYMPHEDEMA AFIB HYPERCOAGULABLE STATE PE IVC FILTER HTN DIASTOLIC DYSFUNCTION ASTHMA RESTRICTED MOBILITY NOW WITH SS COMPLEX OF ABD PAIN CT OF ABD LARGE HIATAL HERNIA WITH COMPRESSION OF LUNG TISSUE CHOLELITHIASIS vital signs Vital Sign Date Time Temp Pulse Resp B/P (MAP) Pulse Ox O2 Delivery O2 Flow Rate FiO2 07/28/24 10:00 97 Room Air 0.0 07/28/24 10:00 21 07/28/24 09:00 97.5 85 16 135/71 (92) 97.5 Total Intake and Output 07/27/24 07/27/24 07/28/24 15:00 23:00 07:00 Intake Total 680 ml 950 ml Output Total 200 ml 250 ml Balance -200 ml 430 ml 950 ml medications Current Medications Medications Dose Ordered Sig/Fernando Route Start Time Stop Time Status Last Admin Dose Admin Furosemide 20 mg DAILY PO 07/24/24 10:00 07/27/24 09:55 20 MG Levothyroxine Sodium 50 mcg QAM PO 07/24/24 07:00 07/27/24 06:26 50 MCG Sennosides 8.6 mg DAILY PO 07/24/24 10:00 07/26/24 10:00 8.6 MG Atorvastatin Calcium 40 mg HS PO 07/24/24 22:00 07/27/24 21:17 40 MG Cholecalciferol 2,000 unit DAILY PO 07/24/24 10:00 07/27/24 09:54 2,000 UNIT Acetaminophen 650 mg Q4HP PRN PO 07/24/24 03:00 07/27/24 21:16 650 MG Pantoprazole Sodium 40 mg BID IV 07/24/24 22:00 07/28/24 10:10 40 MG Sucralfate 1 gm TID@0600,1130,2200 PO 07/24/24 11:30 07/27/24 21:15 1 GM Patient Own Medication 1 tab DAILY PO 07/24/24 09:15 UNV Propranolol HCl 40 mg BID PO 07/24/24 10:45 07/27/24 21:20 40 MG Lactulose 30 ml DAILYPRN PRN PO 07/25/24 22:00 07/26/24 22:03 30 ML Melatonin 5 mg HS PRN PO 07/25/24 22:00 Cancel laboratory and microbiology Laboratory Tests 07/28/24 05:43 07/26/24 07:41 Test 07/28/24 05:43 Range/Units Serum Glucose 86 74-106 mg/dL Problem List HX OF CHRONIC DVT LE EDEMA LYMPHEDEMA AFIB HYPERCOAGULABLE STATE PE IVC FILTER HTN DIASTOLIC DYSFUNCTION ASTHMA RESTRICTED MOBILITY NOW WITH SS COMPLEX OF ABD PAIN CT OF ABD LARGE HIATAL HERNIA WITH COMPRESSION OF LUNG TISSUE CHOLELITHIASIS Assessment/Plan CONT ANTI COAGULATION NEEDS CORRECTION OF HH ABX CT OF C SPINE 1. Severe cervical degenerative disc disease. 2. Severe facet hypertrophic changes. 3. Hyperdense opacification of the sphenoid, maxillary sinuses which can be seen with inspissated secretions, fungal etiologies. CONSIDER TREATMENT WITH DIFLUCAN Dietary Evaluation Review Recommendations by RD: Dietary education by RD, Protein Supplementation Comments: 1) Initiate Pro-Stat @ 30 mL qd 2) Initiate multivitamin @ 1 tb qd 3) Advance to cardiac diet when medicaly feasible, pending [employer] approval 4) Refer to outpatient RD for weight management 5) Follow up with cardiology and gastroenterology 6) Continue to monitor I&O, labs, and skin integrity Expected Outcomes/Goals: 1) appetite and labs to improve 2) diet to advance 3) wound to improve 4) f/u in 3-5 days Plan discussed with: Patient AI CORBIN MD Jul 28, 2024 12:42
--- NOTE | 2024-07-28 12:44 | DVHPN2 ---
Progress Note - Dictate Date Seen: Jul 28, 2024 Has the PT tested + for MRSA If YES, has PT been informed?: No Medical Necessity Reason Pt with a Central, PICC or Fol: No Subjective PT WELL KNOWN TO ME HX OF CHRONIC DVT LE EDEMA LYMPHEDEMA AFIB HYPERCOAGULABLE STATE PE IVC FILTER HTN DIASTOLIC DYSFUNCTION ASTHMA RESTRICTED MOBILITY NOW WITH SS COMPLEX OF ABD PAIN CT OF ABD LARGE HIATAL HERNIA WITH COMPRESSION OF LUNG TISSUE CHOLELITHIASIS vital signs Vital Sign Date Time Temp Pulse Resp B/P (MAP) Pulse Ox O2 Delivery O2 Flow Rate FiO2 07/28/24 10:00 97 Room Air 0.0 07/28/24 10:00 21 07/28/24 09:00 97.5 85 16 135/71 (92) 97.5 Total Intake and Output 07/27/24 07/27/24 07/28/24 15:00 23:00 07:00 Intake Total 680 ml 950 ml Output Total 200 ml 250 ml Balance -200 ml 430 ml 950 ml medications Current Medications Medications Dose Ordered Sig/Fernando Route Start Time Stop Time Status Last Admin Dose Admin Furosemide 20 mg DAILY PO 07/24/24 10:00 07/27/24 09:55 20 MG Levothyroxine Sodium 50 mcg QAM PO 07/24/24 07:00 07/27/24 06:26 50 MCG Sennosides 8.6 mg DAILY PO 07/24/24 10:00 07/26/24 10:00 8.6 MG Atorvastatin Calcium 40 mg HS PO 07/24/24 22:00 07/27/24 21:17 40 MG Cholecalciferol 2,000 unit DAILY PO 07/24/24 10:00 07/27/24 09:54 2,000 UNIT Acetaminophen 650 mg Q4HP PRN PO 07/24/24 03:00 07/27/24 21:16 650 MG Pantoprazole Sodium 40 mg BID IV 07/24/24 22:00 07/28/24 10:10 40 MG Sucralfate 1 gm TID@0600,1130,2200 PO 07/24/24 11:30 07/27/24 21:15 1 GM Patient Own Medication 1 tab DAILY PO 07/24/24 09:15 UNV Propranolol HCl 40 mg BID PO 07/24/24 10:45 07/27/24 21:20 40 MG Lactulose 30 ml DAILYPRN PRN PO 07/25/24 22:00 07/26/24 22:03 30 ML Melatonin 5 mg HS PRN PO 07/25/24 22:00 Cancel laboratory and microbiology Laboratory Tests 07/28/24 05:43 07/26/24 07:41 Test 07/28/24 05:43 Range/Units Serum Glucose 86 74-106 mg/dL Problem List HX OF CHRONIC DVT LE EDEMA LYMPHEDEMA AFIB HYPERCOAGULABLE STATE PE IVC FILTER HTN DIASTOLIC DYSFUNCTION ASTHMA RESTRICTED MOBILITY NOW WITH SS COMPLEX OF ABD PAIN CT OF ABD LARGE HIATAL HERNIA WITH COMPRESSION OF LUNG TISSUE CHOLELITHIASIS Assessment/Plan CONT ANTI COAGULATION NEEDS CORRECTION OF HH ABX CT OF C SPINE 1. Severe cervical degenerative disc disease. 2. Severe facet hypertrophic changes. 3. Hyperdense opacification of the sphenoid, maxillary sinuses which can be seen with inspissated secretions, fungal etiologies. CONSIDER TREATMENT WITH DIFLUCAN PHYSICAL THERAPY DIFLUCAN FOR 30 DAYS Dietary Evaluation Review Recommendations by RD: Dietary education by RD, Protein Supplementation Comments: 1) Initiate Pro-Stat @ 30 mL qd 2) Initiate multivitamin @ 1 tb qd 3) Advance to cardiac diet when medicaly feasible, pending [employer] approval 4) Refer to outpatient RD for weight management 5) Follow up with cardiology and gastroenterology 6) Continue to monitor I&O, labs, and skin integrity Expected Outcomes/Goals: 1) appetite and labs to improve 2) diet to advance 3) wound to improve 4) f/u in 3-5 days Plan discussed with: Patient AI CORBIN MD Jul 28, 2024 12:44
[2024-07-28] MEDS: FLUCONAZOLE 100 MG TAB PO SCH (12:53)
--- NOTE | 2024-07-28 12:59 | DVHOP2 ---
Operative Report DATE OF OPERATION: 07/28/24 PROCEDURE: Upper Endoscopy with biopsy PREOPERATIVE INDICATION: The patient is a 84 -year-old female undergoing endoscopy for epigastric pain atypical chest discomfort and large hiatal hernia POSTOPERATIVE DIAGNOSES: 1. Large 12 cm sliding-type hiatal hernia with paraesophageal component; no significant erosive esophagitis of the GE junction 2. Mild gastroduodenitis with superficial erosions 3. Multiple benign gastric fundic polyps were seen and removed by cold biopsy forceps 4. Tertiary contractions of the esophagus otherwise normal examination up to the 2nd and 3rd part of the duodenum PROCEDURE PERFORMED BY: Matias Chacon GI NURSE: Mason SCOPE: Olympus videoendoscope. ASA CLASS: 2 PREOPERATIVE MEDICATIONS: Versed 1 mg, Fentanyl 25 mcg, Benadryl 25 mg I administered moderate sedation throughout this _8_ minutes procedure. An independent trained observer pushed medications at my direction, and monitored the patient's level of consciousness and physiological status throughout. PROCEDURE IN DETAIL: After obtaining an informed consent, the patient was placed on left lateral decubitus position. The patient was then sedated with the above medications. A bite block was placed between her teeth. The endoscope was then passed through the oropharynx, into the esophagus, and through the stomach and pylorus up to the second and third part of the duodenum. The endoscope was then withdrawn. The duodenal bulb and 2nd part of the duodenal showed mild duodenitis. Duodenal biopsies were obtained The pre-pyloric area antrum and body showed mild gastritis with superficial erosions. Gastric biopsies were obtained On retroflexion and straight on view the patient had a large 12 cm sliding-type hiatal hernia with no significant erosive esophagitis of the GE junction There were multiple benign-appearing gastric polyps seen within the hiatal hernia sac and also in the body of the stomach which were removed by cold biopsy forceps The endoscope was then withdrawn. The remaining esophagus showed tertiary contractions and tortuosity of the esophagus. The patient tolerated the procedure well without difficulty. COMPLICATIONS : None SPECIMENS: Duodenal biopsies Gastric biopsies Gastric polyps DISPOSITION: Transfer back to the floor Stable PLAN: 1. Await for biopsy result 2. Will place pt on Protonix 40 mg bid 3. Carafate 1 g p.o. twice a day 4. Resume soft mechanical diet advance as tolerated 5. Outpatient follow up with me in 4-6 weeks or as needed MATIAS CHACON MD Jul 28, 2024 12:59
--- NOTE | 2024-07-28 14:50 | DVHPNRES ---
Progress Note Date Seen: Jul 28, 2024 Resident Creating Document: ELIA CORREA RESIDENT Has the PT tested + for MRSA If YES, has PT been informed?: No Medical Necessity Reason Pt with a Central, PICC or Fol: No Subjective Review of Systems Ruby Mcdaniel is an 84-year-old female with a complex medical history including Afib & DVT Rt leg on Coumadin, with an IVC filter, HTN, thyroid disease, HLD, asthma, arthritis, and CHF, who presented with complaints of abdominal pain. The patient reported a history of a mild hiatal hernia diagnosed in 2010, which was noted to have enlarged significantly during a hospitalization three years ago, at which time surgical intervention was considered but ultimately deferred. The current episode of abdominal pain began yesterday, described as crampy, sharp, sudden in onset, and rated 9/10 in intensity. The pain is aggravated by movement. The patient also endorsed nausea without vomiting. She reported chronic shortness of breath for over a year and chronic bilateral leg swelling attributed to CHF, under the care of Dr. Panchal (clay roaster). Additional symptoms include a chronic cough with scant mucus production and morning- predominant reflux symptoms. Initial laboratory workup was negative for troponin I, BNP, and lipase. A CT scan of the abdomen and pelvis revealed a large hiatal hernia measuring 24 cm transversely and 13 cm cranio-caudally, containing mesenteric fat, stomach, and bowel, with compression of the lower lung eagle bilaterally. Additional findings included small gallstones, a TrapEase IVC filter located inferior to the renal veins, and 23 mm anterior spondylolisthesis at L4L5. 07/26-Patient seen and examined at the bedside. Reports intermittent pain, epigastric. No acute distress. GI consultation pending. 07/27-patient seen and examined at the bedside. Reports feeling better. GI consultation completed, patient scheduled for EGD tomorrow. NPO after midnight. 07/28-patient seen and examined at bedside. Underwent EGD which showed large 12 cm sliding-type hiatal hernia with paraesophageal component, no significant erosive esophagitis. Mild gastroduodenitis. Objective vital signs Vital Sign Date Time Temp Pulse Resp B/P (MAP) Pulse Ox O2 Delivery O2 Flow Rate FiO2 07/28/24 14:07 173/77 07/28/24 14:06 68 07/28/24 13:42 97.9 14 95 97.9 07/28/24 12:41 Nasal Cannula 4.0 94 Total Intake and Output 07/27/24 07/27/24 07/28/24 15:00 23:00 07:00 Intake Total 680 ml 950 ml Output Total 200 ml 250 ml Balance -200 ml 430 ml 950 ml medications Current Medications Medications Dose Ordered Sig/Fernando Route Start Time Stop Time Status Last Admin Dose Admin Furosemide 20 mg DAILY PO 07/24/24 10:00 07/28/24 14:07 20 MG Levothyroxine Sodium 50 mcg QAM PO 07/24/24 07:00 07/27/24 06:26 50 MCG Sennosides 8.6 mg DAILY PO 07/24/24 10:00 07/26/24 10:00 8.6 MG Atorvastatin Calcium 40 mg HS PO 07/24/24 22:00 07/27/24 21:17 40 MG Cholecalciferol 2,000 unit DAILY PO 07/24/24 10:00 07/28/24 14:07 2,000 UNIT Acetaminophen 650 mg Q4HP PRN PO 07/24/24 03:00 07/28/24 14:19 650 MG Pantoprazole Sodium 40 mg BID IV 07/24/24 22:00 07/28/24 10:10 40 MG Sucralfate 1 gm TID@0600,1130,2200 PO 07/24/24 11:30 07/28/24 14:06 1 GM Patient Own Medication 1 tab DAILY PO 07/24/24 09:15 UNV Propranolol HCl 40 mg BID PO 07/24/24 10:45 07/28/24 14:06 40 MG Lactulose 30 ml DAILYPRN PRN PO 07/25/24 22:00 07/26/24 22:03 30 ML Melatonin 5 mg HS PRN PO 07/25/24 22:00 Cancel Fluconazole 200 mg DAILY PO 07/28/24 12:53 07/28/24 14:06 200 MG Examination Patient lying in bed, in no acute distress General: Obese, afebrile, palor, mucosae are moist Cardiovascular: Regular S1 and S2. No murmurs, gallops or rubs. No JVD elevation. No pedal edema Respiratory: Normal B/L air entry on room air. Clear lung sounds on auscultation Abdomen: Soft, nontender, nondistended, normoactive bowel sounds, no rebound tenderness, no organomegaly, no masses Genitourinary: Deferred MSK/skin: Skin is dry and warm Neurological: No motor, no sensitive deficits, normal speech. Pupils are isocoric and reactive. Psych/Mental Status: A/Ox3 laboratory and microbiology Laboratory Tests 07/28/24 05:43 07/26/24 07:41 Test 07/28/24 05:43 Range/Units Serum Glucose 86 74-106 mg/dL Labs and/or images reviewed: Labs reviewed by me, Image(s) reviewed by me Problem List/Assessment/Plan Problem List/Assessment/Plan # Epigastric pain # Large hiatal hernia # GERD & acute gastritis # Cholelithiasis - surgeon recommended outpatient follow up - CT ABD/pelvis showed large hiatal hernia measuring 24 x 13 cm, containing mesenteric fat, stomach, and bowel, with compression of the lower lung eagle bilaterally. along with small gallstones - GI consultation -Underwent EGD which showed large 12 cm sliding-type hiatal hernia with paraesophageal component, no significant erosive esophagitis. Mild gastroduodenitis. Outpatient GI follow up in 4 weeks - Protonix 40 mg b.i.d. and Carafate 1 g p.o. twice daily. # Un controlled HTN possible urgency # Hx of Afib with a secondary hypercoagulable state # Hx of DVT- s/p IVC filter - continuously monitoring blood pressure - continue propranolol 40 mg b.i.d. - on warfarin # Chronic systolic versus diastolic CHF - continue propranolol and Lasix - ordered echocardiogram - consulted Dr. Panchal # Anterior spondylolisthesis L4L5- CT abdomen/ pelvis. Conservative management for now. Outpatient follow up with spine surgeon. # Hypothyroidism, status post partial thyroidectomy due to thyroid nodule - continue levothyroxine # Arthritis - no active issues # Hyperlipidemia - on statin # Asthma - not in exacerbation # History of polio - paraplegic; no active issues Protonix Warfarin Mechanical soft diet Goals of care discussed with the patient for 20 minutes: Full code status Case discussed with Dr. Victoria, patient and nurse, pending upper EGD. NPO after midnight Plan discussed with: Patient My Orders My Orders Orders - ELIA CORREA RESIDENT Procedure Category Date Status Time * Toter CONS 07/27/24 Transmitted Consult Dietary Evaluation Review Recommendations by RD: Dietary education by RD, Protein Supplementation Comments: 1) Initiate Pro-Stat @ 30 mL qd 2) Initiate multivitamin @ 1 tb qd 3) Advance to cardiac diet when medicaly feasible, pending [employer] approval 4) Refer to outpatient RD for weight management 5) Follow up with cardiology and gastroenterology 6) Continue to monitor I&O, labs, and skin integrity Expected Outcomes/Goals: 1) appetite and labs to improve 2) diet to advance 3) wound to improve 4) f/u in 3-5 days ELIA CORREA RESIDENT Jul 28, 2024 14:50
[2024-07-28] MEDS ORDERED: POTASSIUM EFFERVESENT TAB 25 MEQ PO ONE (15:00)
[2024-07-28] MEDS: POLYETHYLENE GLYCOL 17 GM PWDR PO ONE (20:29)
[2024-07-29] VITALS (10 sets, daily range): BP systolic 95–157; BP diastolic 53–71; PULSE 62–82; RESP 16–20; TEMP 97.2–98.1; O2SAT 95–98
[2024-07-29] MEDS: FLEET ENEMA(ADULT) 135 ML PR ONE (11:44)
--- NOTE | 2024-07-29 23:07 | DVHPN2 ---
Progress Note - Dictate Date Seen: Jul 29, 2024 (Late entryTime of visit 12 noon) Has the PT tested + for MRSA If YES, has PT been informed?: No Medical Necessity Reason Pt with a Central, PICC or Fol: No Subjective No new complaints Tolerating diet EGD findings reviewed with patient vital signs Vital Sign Date Time Temp Pulse Resp B/P (MAP) Pulse Ox O2 Delivery O2 Flow Rate FiO2 07/29/24 16:50 97.2 77 18 142/71 (94) 95 97.2 07/29/24 10:00 Room Air 0.0 07/29/24 10:00 21 Total Intake and Output 07/28/24 07/28/24 07/29/24 15:00 23:00 07:00 Intake Total 100 ml 600 ml 250 ml Balance 100 ml 600 ml 250 ml medications Current Medications Medications Dose Ordered Sig/Fernando Route Start Time Stop Time Status Last Admin Dose Admin Patient Own Medication 1 tab DAILY PO 07/24/24 09:15 UNV Melatonin 5 mg HS PRN PO 07/25/24 22:00 Cancel objective Patient lying in bed, in no acute distress General: Obese, afebrile, palor, mucosae are moist Cardiovascular: Regular S1 and S2. No murmurs, gallops or rubs. No JVD elevation. No pedal edema Respiratory: Normal B/L air entry on room air. Clear lung sounds on auscultation Abdomen: Soft, nontender, nondistended, normoactive bowel sounds, no rebound tenderness, no organomegaly, no masses Genitourinary: Deferred MSK/skin: Mobilizes 4 limbs. Skin is dry and warm Neurological: No motor, no sensitive deficits, normal speech. Pupils are isocoric and reactive. Psych/Mental Status: A/Ox3 laboratory and microbiology Laboratory Tests 07/28/24 05:43 07/26/24 07:41 Test 07/28/24 05:43 Range/Units Serum Glucose 86 74-106 mg/dL Problems(with codes): (1) Hiatal hernia (2) Epigastric pain Prognosis PLAN: 1. Await for biopsy result 2. Will place pt on Protonix 40 mg bid 3. Carafate 1 g p.o. twice a day 4. Resume soft mechanical diet advance as tolerated 5. Outpatient follow up with me in 4-6 weeks or as needed Discharge planning is in progress Dietary Evaluation Review Recommendations by RD: Dietary education by RD, Protein Supplementation Comments: 1) Initiate Pro-Stat @ 30 mL qd 2) Initiate multivitamin @ 1 tb qd 3) Advance to cardiac diet when medicaly feasible, pending [employer] approval 4) Refer to outpatient RD for weight management 5) Follow up with cardiology and gastroenterology 6) Continue to monitor I&O, labs, and skin integrity Expected Outcomes/Goals: 1) appetite and labs to improve 2) diet to advance 3) wound to improve 4) f/u in 3-5 days Plan discussed with: Patient MATIAS LIMA MD Jul 29, 2024 23:07
== END 2024-07-29 18:00 | disposition home or self-care (01) | DRG 392 ==
LOC: ER 19:26 → EDBD 19:26 → OVERFLOW 23:57 → EAST 07-24 01:33
PROVIDERS: ADMIT Student in an Organized Health Care Education/Training Program; ATTEND Student in an Organized Health Care Education/Training Program
PROC: 0DB68ZX Excision of Stomach, Via Natural or Artificial Opening Endoscopic, Diagnostic (ICD-10-PCS; 2024-07-28)
PROC: 0DB68ZZ Excision of Stomach, Via Natural or Artificial Opening Endoscopic (ICD-10-PCS; 2024-07-28)
PROC: 0DB98ZX Excision of Duodenum, Via Natural or Artificial Opening Endoscopic, Diagnostic (ICD-10-PCS; principal; 2024-07-28 12:21)
DX: K44.9 Diaphragmatic hernia without obstruction or gangrene (principal); D68.59 Other primary thrombophilia; K29.00 Acute gastritis without bleeding; K80.20 Calculus of gallbladder without cholecystitis without obstruction; I11.0 Hypertensive heart disease with heart failure; I48.91 Unspecified atrial fibrillation; E78.5 Hyperlipidemia, unspecified; J45.909 Unspecified asthma, uncomplicated; M43.16 Spondylolisthesis, lumbar region; I89.0 Lymphedema, not elsewhere classified; K21.9 Gastro-esophageal reflux disease without esophagitis; K29.90 Gastroduodenitis, unspecified, without bleeding; K31.7 Polyp of stomach and duodenum; I50.9 Heart failure, unspecified; M50.30 Other cervical disc degeneration, unspecified cervical region; K29.80 Duodenitis without bleeding; Z90.710 Acquired absence of both cervix and uterus; Z88.0 Allergy status to penicillin; Z88.1 Allergy status to other antibiotic agents; Z86.718 Personal history of other venous thrombosis and embolism; Z88.5 Allergy status to narcotic agent; Z82.49 Family history of ischemic heart disease and other diseases of the circulatory system; Z79.899 Other long term (current) drug therapy; Z82.3 Family history of stroke; Z86.12 Personal history of poliomyelitis; Z79.01 Long term (current) use of anticoagulants
CPT/HCPCS: 36415; 43239; 71045; 72125; 74176; 80048; 80053; 82306; 82565; 82607; 82746; 82962; 83036; 83605; 83690; 83880; 84484; 85014; 85018; 85025; 85610; 85730; 86850; 86900; 86901; 93005; 93306; 94640; 96374; 96375; G0378; J2250; J2470